=== PATIENT | male | born 1940 | race Caucasian/White ===

== ENCOUNTER → 2017-03-07 | Outpatient (CLI) | payer MEDICARE, BC ==
--- NOTE | 2017-03-07 14:35 | XR ---
EXAMINATION TYPE: XR KUB DATE OF EXAM: 03/07/2017 COMPARISON: NONE HISTORY: Pain TECHNIQUE: Single supine KUB image of the abdomen is obtained FINDINGS: Small bowel demonstrates no evidence for dilatation or air fluid levels. Gas and fecal material is seen in non-distended colon. No convincing evidence for pneumoperitoneum. No unusual calcifications. The lung bases are clear. The osseous structures are intact. IMPRESSION: 1. Overall nonobstructive bowel gas pattern.
== END | disposition home or self-care (01) ==
LOC: RADXRMAIN 14:14
PROVIDERS: ATTEND Internal Medicine
DX: R14.3 Flatulence (principal)
CPT/HCPCS: 74000

== ENCOUNTER → 2017-03-15 | Outpatient (CLI) | payer MEDICARE, BC ==
--- NOTE | 2017-03-15 18:41 | CT ---
EXAMINATION TYPE: CT abdomen pelvis wo con DATE OF EXAM: 03/15/2017 COMPARISON: Abdominal KUB radiograph dated 03/07/2017 HISTORY: Patient complains of episodes of gross hematuria. CT DLP: 1072 mGycm Automated exposure control for dose reduction was used. TECHNIQUE: Helical acquisition of images was performed from the lung bases through the pelvis. FINDINGS: LUNG BASES: No significant abnormality is appreciated. There is partial visualization of sternotomy w ires. LIVER/GB: Hepatic attenuation is homogeneous other than a single calcification within the left hepati c lobe. The gallbladder is enlarged continuing numerous layering gallstones and gallbladder sludge. T he gallbladder measures at least 12.7 cm in length. The common bile duct is not enlarged measuring 6 mm. PANCREAS: No significant abnormality is seen. SPLEEN: No significant abnormality is seen. ADRENALS: No significant abnormality is seen. KIDNEYS: 2 cm left upper pole renal cyst is present as well as a nonobstructing 8 mm left renal calcu beth, 3 mm nonobstructing left renal calculus, and left renal sinus cyst. 1.1 cm exophytic right midpo le renal cyst is present. No right-sided nephrolithiasis. No evidence of hydronephrosis within either kidney. No perinephric fat stranding is seen. FREE AIR: No free air is visualized RETROPERITONEAL ADENOPATHY: None visualized REPRODUCTIVE ORGANS: No significant abnormality is seen URINARY BLADDER: No significant abnormality is seen. PELVIC ADENOPATHY: Multiple nonenlarged lymph nodes are seen within the pelvis measuring up to 8 mm in short axis. Bilateral fat-containing inguinal hernias are noted. OSSEOUS STRUCTURES: Degenerative changes are appreciated of the visualized thoracolumbar spine with anterior bridging osteophytes and degenerative disc disease at L4-5 as well as L5-S1. BOWEL: Large rectal fecal ball measuring up to 9.7 cm is seen without surrounding mucosal thickening . OTHER: Bilateral retroareolar gynecomastia is noted as well as varicosities within the subcutaneous t issues. There is diastases recti without interval ventral hernia. IMPRESSION: 1. NONOBSTRUCTING LEFT RENAL CALCULI (2 IN NUMBER) MEASURING UP TO 8 MM. RENAL CYSTS ARE SEEN. IF SHAHID SS HEMATURIA PERSISTS CT UROGRAM COULD BE PERFORMED FOR FURTHER EVALUATION. 2. ENLARGED GALLBLADDER CONTAINING NUMEROUS CHOLELITHS AND LAYERING GALLBLADDER SLUDGE. COMMON BILE D UCT IS WITHIN NORMAL LIMITS. IF THERE IS CLINICAL CONCERN FOR CHOLECYSTITIS OR BILIARY DYSKINESIA HID A SCAN WITH CCK COULD BE PERFORMED. 3. BILATERAL RETROAREOLAR GYNECOMASTIA. 4. LARGE RECTAL FECAL BALL MEASURING UP TO 9.7 CM WITHOUT SURROUNDING MUCOSAL THICKENING TO SUGGEST P ROCTITIS.
== END | disposition home or self-care (01) ==
LOC: RADCTMAIN 15:01
PROVIDERS: ATTEND Internal Medicine
DX: N20.0 Calculus of kidney (principal); N28.1 Cyst of kidney, acquired; K82.8 Other specified diseases of gallbladder; K80.20 Calculus of gallbladder without cholecystitis without obstruction
CPT/HCPCS: 74176

== ENCOUNTER → 2017-08-01 | Outpatient (CLI) | payer MEDICARE, BC ==
[2017-08-01 10:27] LABS: Calcium 9.6 mg/dL (8.4-10.2); Potassium 4.2 mmol/L (3.5-5.1)
== END | disposition home or self-care (01) ==
LOC: LABWHC1 09:32
PROVIDERS: ATTEND Internal Medicine
DX: E78.5 Hyperlipidemia, unspecified (principal); E11.9 Type 2 diabetes mellitus without complications
CPT/HCPCS: 36415; 80048; 80061; 83036

== ENCOUNTER → 2018-01-21 | Outpatient (CLI) | payer MEDICARE, BC ==
--- NOTE | 2018-01-21 13:20 | US ---
EXAMINATION TYPE: US kidneys/renal and bladder DATE OF EXAM: 01/21/2018 COMPARISON: 03/30/2016 CLINICAL HISTORY: N20.0 Nephrolithiasis. gross hematuria 1 per week, h/o nephrolithiasis EXAM MEASUREMENTS: Right Kidney: 10.6 x 4.1 x 5.4 cm Left Kidney: unable to assess scanned in a wheelchair, large body habitus Right Kidney: No hydronephrosis or nephrolithiasis or masses seen Left Kidney: Obscured by overlying bowel gas Bladder: limited visibility of bladder IMPRESSION: Limited exam as discussed above with suboptimal visualization of the left kidney and bladder. Right k idney demonstrates no acute abnormality.
== END ==
LOC: RADUSWWP 12:42
PROVIDERS: ATTEND Internal Medicine Nephrology
DX: N20.0 Calculus of kidney (principal)
CPT/HCPCS: 76770

== ENCOUNTER → 2018-02-20 | Outpatient (CLI) | payer MEDICARE, BC ==
--- NOTE | 2018-02-20 15:09 | CT ---
EXAMINATION TYPE: CT abdomen pelvis wo con DATE OF EXAM: 02/20/2018 COMPARISON: 03/15/2017 HISTORY: Renal stones. Follow-up examination. Patient describes episodes of gross hematuria. CT DLP: 2280.1 mGycm Automated exposure control for dose reduction was used. TECHNIQUE: Helical acquisition of images was performed from the lung bases through the pelvis. FINDINGS: LUNG BASES: Calcified granulomas are seen within the right lung base. LIVER/GB: Again there is a solitary calcification within the left hepatic lobe otherwise the gallblad mariaa is unremarkable but elongated extending to the iliac crest. Numerous gallstones are seen within t he hydropic gallbladder although no ductal dilatation is identified of the common bile duct. PANCREAS: Mild pancreatic parenchymal atrophy is seen without ductal dilatation. SPLEEN: No splenomegaly ADRENALS: No nodularity. Slight asymmetric left greater than right thickening suggests underlying adr enal gland hyperplasia as the adreniform shape of the adrenal glands is maintained. KIDNEYS: Again there is a probable 2 cm left renal sinus cyst and nonobstructing left upper pole appr oximately 7 mm calculus as well as midpole nonobstructing 3 mm calculus. No right-sided renal calculi are seen. Exophytic right midpole cyst is better appreciated on the prior exam. Urinary bladder wall thickening may relate to incomplete distention and could be correlated with urinalysis to exclude cy stitis. FREE AIR: No free air is visualized ADENOPATHY: No greater than 1 cm short axis lymph node is seen within the abdomen or pelvis. Seen on the prior exam there are multiple nonenlarged pelvic lymph nodes measuring up to 8 mm in short axis. Bilateral fat filled inguinal hernias are again noted. OSSEOUS STRUCTURES: Mild multilevel degenerative changes of the thoracolumbar spine are noted. Moder ate to severe femoral acetabular arthropathy is seen with subchondral sclerosis of the femoral heads without collapse. BOWEL: Numerous colonic diverticula are present without pericolonic fat stranding. No large or small bowel dilatation. OTHER: Superficial subcutaneous varicosities are noted. There is diastases recti and a small fat fill ed periumbilical hernia. Incidental note is made of gynecomastia that is overall symmetric. Moderate calcific atheromatous changes are seen of the abdominal aorta and its branches. Generalized muscular atrophy is seen of the lower extremities and the visualized portions and pelvis. IMPRESSION: 1. Stable nonobstructing left-sided nephrolithiasis. No hydronephrosis bilaterally. Urinary bladder w alls are thickened circumferentially in could relate to incomplete distention or urinary tract infect ion. Correlation with urinalysis is recommended. 2. Hydropic size of the gallbladder containing numerous gallstones.
== END | disposition home or self-care (01) ==
LOC: RADCTMAIN 13:39
PROVIDERS: ATTEND Urology
DX: N20.0 Calculus of kidney (principal); N32.89 Other specified disorders of bladder; K80.20 Calculus of gallbladder without cholecystitis without obstruction; Z88.0 Allergy status to penicillin; Z88.1 Allergy status to other antibiotic agents
CPT/HCPCS: 74176

== ENCOUNTER → 2018-04-23 | Outpatient (CLI) | payer MEDICARE, BC ==
[2018-04-23 12:33] LABS: Calcium 9.2 mg/dL (8.4-10.2); Magnesium 2.2 mg/dL (1.6-2.3); Phosphorus 3.9 mg/dL (2.5-4.5); Potassium 4.8 mmol/L (3.5-5.1); Uric Acid 7.4 mg/dL (3.5-8.5)
[2018-04-23 12:34] LABS: Basophils # (A) 0.1 k/uL (0-0.2); Basophils % (A) 1 %; Eosinophils # (A) 0.3 k/uL (0-0.7); Eosinophils % (A) 4 %; HCT 37.7 % (39.0-53.0); HGB 12.1 gm/dL (13.0-17.5); Lymphocytes # (A) 1.2 k/uL (1.0-4.8); Lymphocytes % (A) 17 %; MCH 29.9 pg (25.0-35.0); MCHC 32.2 g/dL (31.0-37.0); Mean Platelet Volume 7.4; Monocytes # (A) 0.3 k/uL (0-1.0); Monocytes % (A) 5 %; Neutrophils % (A) 71 %; Platelet Count 190 k/uL (150-450); RBC 4.05 m/uL (4.30-5.90); RDW 14.2 % (11.5-15.5); WBC 7.1 k/uL (3.8-10.6)
[2018-04-23 18:31] LABS: Iron Saturation 23.66 (15.00-50.00)
[2018-04-23 19:16] LABS: Parathyroid Hormone Intact 67.6 pg/mL (14.0-72.0)
== END | disposition home or self-care (01) ==
LOC: LABWHC1 11:40
PROVIDERS: ATTEND Internal Medicine Nephrology
DX: N18.3 Chronic kidney disease, stage 3 (moderate) (principal); D63.1 Anemia in chronic kidney disease; E55.9 Vitamin D deficiency, unspecified; E21.3 Hyperparathyroidism, unspecified; M10.9 Gout, unspecified; N39.0 Urinary tract infection, site not specified
CPT/HCPCS: 36415; 80048; 82306; 82728; 83540; 83550; 83735; 83970; 84100; 84550; 85025

== ENCOUNTER → 2019-04-09 | Outpatient (CLI) | payer MEDICARE ==
--- NOTE | 2019-04-09 12:49 | XR ---
EXAMINATION TYPE: XR cervical spine comp DATE OF EXAM: 04/09/2019 TECHNIQUE: Frontal, lateral, oblique, and open mouth view of the cervical spine are obtained. HISTORY: DJD SPONDYLOLISTHESIS COMPARISON: None FINDINGS: The cervical spine is visualized in its entirety from C1 thru the top of T1 level, it is s atisfactory in alignment without evidence of acute fracture or dislocation. The pre-vertebral soft t issue appears within normal limits. The C1-C2 articulation is shows poor visualization top of the de ns, lateral recesses maintained. Vertebral body heights are maintained. There is advanced multilevel anterior spurring. There is moderate multilevel lateral spurring. There is mild multilevel disc space narrowing mid to lower cervical levels. Oblique images show multilevel facet spurring. Overlying rubén rnal wires are present. IMPRESSION: As above. Large anterior bridging osteophytes, correlate for DISH.
--- NOTE | 2019-04-09 12:53 | XR ---
EXAMINATION TYPE: XR lumbar spine 2 or 3V DATE OF EXAM: 04/09/2019 CLINICAL HISTORY: Spondylolisthesis and DJD. TECHNIQUE: Frontal and lateral images of the lumbar spine are obtained. COMPARISON: CT abdomen and pelvis February 20, 2018 FINDINGS: There are 5 lumbar type vertebral bodies redemonstrated. The lumbar spine shows satisfact ory alignment without evidence of acute fracture or dislocation. Mild disc space narrowing L5-S1 leve l otherwise vertebral body heights and disk space heights are within normal limits. Large bridging os teophytes redemonstrated more prominent anteriorly. Facet arthropathy lower lumbar levels. Innumerabl e small gallstones in dilated gallbladder redemonstrated occupying the right lower quadrant. IMPRESSION: Correlate for DISH.
== END | disposition home or self-care (01) ==
LOC: RADXRMAIN 11:40
PROVIDERS: ATTEND Chiropractor
DX: M51.36 Other intervertebral disc degeneration, lumbar region (principal); M99.71 Connective tissue and disc stenosis of intervertebral foramina of cervical region; M25.78 Osteophyte, vertebrae; M43.10 Spondylolisthesis, site unspecified
CPT/HCPCS: 72050; 72100

== ENCOUNTER → 2020-02-16 | Outpatient (CLI) | payer MEDICARE ==
--- NOTE | 2020-02-16 15:57 | US ---
EXAMINATION TYPE: US kidneys/renal and bladder DATE OF EXAM: 02/16/2020 COMPARISON: CT CLINICAL HISTORY: N18.3 Chronic kidney disease, stage 3 (moderate). EXAM MEASUREMENTS: Right Kidney: 10.2 x 5.1 x 4.5cm Left Kidney: 10.5 x 6.0 x 5.1cm Morbidly obese patient unable to walk to bed, done in wheelchair. Technically difficult, limited stud y. Right Kidney: No hydronephrosis or masses seen, very limited visualization Left Kidney: probable cyst measuring 1.4 x 1.4 x 1.1cm, echogenic foci measuring 0.8 x 1.7 x 0.7cm, l imited visualization Bladder: fold vs septation IMPRESSION: 1. Renal cyst or peripelvic cyst mid left kidney. 2. Echogenic left renal stone without evidence of obstruction
== END | disposition home or self-care (01) ==
LOC: RADUSWWP 14:55
PROVIDERS: ATTEND Internal Medicine Nephrology
DX: N20.0 Calculus of kidney (principal)
CPT/HCPCS: 76770

== ENCOUNTER 2020-11-06 14:15 | Inpatient (IN) | payer MEDICARE ==
[2020-11-06] MEDS ORDERED: PANTOPRAZOLE 40 MG/10 ML VIAL IVP STA (14:42)
--- NOTE | 2020-11-06 14:50 | ED ---
General Adult HPI - General Source: patient, family, EMS, RN notes reviewed Mode of arrival: EMS Limitations: no limitations <Shaun Erwin - Last Filed: 11/06/20 14:46> <Moncho Monteiro - Last Filed: 11/06/20 17:16> - General Chief complaint: GI Bleed Stated complaint: GI Bleed Time Seen by Provider: 11/06/20 14:27 - History of Present Illness Initial comments: Patient is a pleasant 80-year-old male presenting to the emergency Department with complaints of GI bleed. Patient did vomit twice with some blood in it. Patient is also had some black tarry stools over the past day or 2. No abdominal pain. Patient does have exertional dyspnea however this is somewhat chronic. Patient also is somewhat more fatigued than normal. Patient is on Eliquis with a history of atrial fibrillation. I did speak with the patient's daughter who is a patient's medical power of compliance attorney. Her phone number is . She states patient does have history of CABG and diabetes as well as amputation. Recent echo in July looked well. (Shaun Erwin) - Related Data Home Medications Medication Instructions Recorded Confirmed Aspirin EC [Ecotrin Low Dose] 81 mg PO DAILY 12/21/13 11/06/20 Carvedilol 12.5 mg PO BID 12/21/13 11/06/20 Cetirizine HCl [Zyrtec] 10 mg PO DAILY 01/14/14 11/06/20 Insulin Glargine,Hum.rec.anlog See Protocol SQ BID 08/31/15 11/06/20 [Sahra Shipley] Apixaban [Eliquis] 5 mg PO BID 04/17/16 11/06/20 Sennosides-Docusate Sodium 1 tab PO DAILY PRN 05/03/16 11/06/20 [Senokot-S] Acetaminophen [Tylenol Arthritis] 650 mg PO Q8H PRN 11/06/20 11/06/20 Allopurinol [Zyloprim] 100 mg PO DAILY 11/06/20 11/06/20 Atorvastatin [Lipitor] 40 mg PO HS 11/06/20 11/06/20 Benazepril [Lotensin] 2.5 mg PO DAILY 11/06/20 11/06/20 Bumetanide 1 mg PO DAILY 11/06/20 11/06/20 Citalopram Hydrobromide [CeleXA] 20 mg PO DAILY 11/06/20 11/06/20 Diltiazem HCl [Diltiazem HCl 24Hr 180 mg PO DAILY 11/06/20 11/06/20 ER (XR)] Docusate [Colace] 100 mg PO DAILY PRN 11/06/20 11/06/20 Insulin Lispro [humaLOG Kwikpen] See Protocol SQ TID 11/06/20 11/06/20 Liraglutide [Victoza 3-Wilfredo] 1.2 mg SQ DAILY 11/06/20 11/06/20 Spironolactone 25 mg PO DAILY 11/06/20 11/06/20 Tamsulosin [Flomax] 0.4 mg PO DAILY 11/06/20 11/06/20 Allergies Allergy/AdvReac Type Severity Reaction Status Date / Time amoxicillin trihydrate AdvReac Mouth Sores Verified 11/06/20 16:09 [From Augmentin] potassium clavulanate AdvReac Mouth Sores Verified 11/06/20 16:09 [From Augmentin] Review of Systems ROS Other: All systems not noted in ROS Statement are negative. Constitutional: Denies: fever Eyes: Denies: eye pain ENT: Denies: ear pain Respiratory: Denies: cough, dyspnea Cardiovascular: Denies: chest pain Endocrine: Reports: fatigue Gastrointestinal: Reports: hematemesis, melena. Denies: abdominal pain Genitourinary: Denies: dysuria Musculoskeletal: Denies: back pain Skin: Denies: rash Neurological: Denies: weakness <Shaun Erwin - Last Filed: 11/06/20 14:46> ROS Other: All systems not noted in ROS Statement are negative. <Moncho Monteiro - Last Filed: 11/06/20 17:16> ROS Statement: Those systems with pertinent positive or pertinent negative responses have been documented in the HPI. Past Medical History Past Medical History: Atrial Fibrillation, Cancer, Diabetes Mellitus, Deep Vein Thrombosis (DVT), Eye Disorder, Hearing Disorder / Deafness, Myocardial Infarction (CA), Osteoarthritis (OA), Osteoarthritis (OA), Renal Disease, Skin Disorder, Skin Disorder Additional Past Medical History / Comment(s): HX MULT MELANOMA,kidney stones, RETINOPATHY, EDEMA LINDA EXTREMITIES. LT FOOT/ANKLE WOUND ON BACK OF HEEL/ANKLE. GOES TO WOUND [facility]ARE CENTER (WEEKLY). RIGHT FOOT TUBAGRIP AND SOLOMON WRAP TO PREVENT SWELLING. CA IN 2003 WITH STENTS & 2011 MILD. Last Myocardial Infarction Date:: 2010 History of Any Multi-Drug Resistant Organisms: MRSA Date of last positivie culture/infection: approx 2010 MDRO Source:: leg Past Surgical History: Cardiac Valve Replacement, Ear Surgery, Heart Catheterization With Stent Additional Past Surgical History / Comment(s): cataracts LINDA EYES; TOES TO BOTH FEET AMPUTATED VIA MULTIPLE SURG WITH MANY COMPLICATIONS D/T WOUND INFECTIONS;,MULTIPLE ANGIOPLASTIES TO RT & LT LEGS/PARTIAL linda FOOT AMPUTATION- AORTIC VALVE REPLACEMENT, linda tubes in ears, linda eye surgery for retina. HEART STENT X2 Past Anesthesia/Blood Transfusion Reactions: No Reported Reaction Additional Past Anesthesia/Blood Transfusion Reaction / Comment(s): STATES "FELT LIKE RUN OVER BY TRAIN" AFTER TUBES IN EARS Date of Last Stent Placement:: 2003 Past Psychological History: Anxiety Smoking Status: Never smoker Past Alcohol Use History: None Reported Past Drug Use History: None Reported - Past Family History Mother Family Medical History: Cancer Father Family Medical History: Diabetes Mellitus <Shaun Erwin - Last Filed: 11/06/20 14:46> General Exam Limitations: no limitations General appearance: alert, in no apparent distress Head exam: Present: normocephalic Eye exam: Present: normal appearance Neck exam: Present: normal inspection Respiratory exam: Present: normal lung sounds bilaterally Cardiovascular Exam: Present: tachycardia, irregular rhythm GI/Abdominal exam: Present: soft. Absent: tenderness Extremities exam: Present: other (Left AKA. Right toe amputations.) Neurological exam: Present: alert Psychiatric exam: Present: normal affect, normal mood Skin exam: Present: normal color <Shaun Erwin - Last Filed: 11/06/20 14:46> Course <Shaun Erwin - Last Filed: 11/06/20 14:46> Vital Signs 11/06/20 11/06/20 11/06/20 14:35 15:42 16:09 Temperature 98 F Pulse Rate 129 H 117 H 104 H Respiratory 18 18 16 Rate Blood Pressure 109/57 109/52 114/64 O2 Sat by Pulse 99 99 96 Oximetry 11/06/20 11/06/20 16:55 17:09 Temperature Pulse Rate 105 H 104 H Respiratory 18 Rate Blood Pressure 113/50 O2 Sat by Pulse 99 Oximetry - Reevaluation(s) Reevaluation #1: 11/06/20 14:49 With patient's permission, daughter was called and updated. (Shaun Erwin) EKG Findings - EKG Comments: EKG Findings:: A. fib with RVR, rate 119. QRS 128. QT 344. QTC 43. Normal axis. Nonspecific intraventricular block. Q wave in lead V1. <Shaun Erwin - Last Filed: 11/06/20 14:46> Medical Decision Making - Lab Data Result diagrams: 11/06/20 15:04 11/06/20 16:37 <Moncho Monteiro - Last Filed: 11/06/20 17:16> - Medical Decision Making Patient was sent out to me by previous shift physician Dr. Erwin. Briefly, patient is a 80-year-old male presents to the emergency department for gastrointestinal bleed. Patient does take anticoagulation medications. He has multiple comorbidities. Vital signs upon arrival shows tachycardia.Patient's potassium is 6.8. Repeat potassium 6.5. Patient does have EKG changes. There is no old EKG for comparison. [place] him that patient's EKG shows hyperacute T waves consistent with hyperkalemia. Patient's Hemoccult was 8.1. Compared to last lab that's available in our EMR it was 13. There is a 5 g drop concerning for acute blood loss. Creatinine is 2.98 with BUN of 149 concerning for acute kidney injury. So, but is positive. Case is discussed with Dr. Ferguson was went accept patient's care on behalf of [facility] physician group. Case was discussed with instructional designer Dr. Sharif who did not feel patient met criteria for ICU admission. Patient will be admitted to telemetry floor for medical monitoring, hyperkalemia treatment, a GI treatment. Gastroenterology and nephrology are consulted. Patient is on anticoagulation medication. On his drug lists he takes apixaban. He has stable vitals. At this point no clear indication for administration of K centra. (Moncho Monteiro) - Lab Data Lab Results 11/06/20 11/06/20 11/06/20 Range/Units 14:57 15:04 15:04 WBC 9.3 (3.8-10.6) k/uL RBC 2.46 L (4.30-5.90) m/uL Hgb 8.1 L (13.0-17.5) gm/dL Hct 23.3 L (39.0-53.0) % MCV 94.5 (80.0-100.0) fL MCH 32.8 (25.0-35.0) pg MCHC 34.7 (31.0-37.0) g/dL RDW 14.0 (11.5-15.5) % Plt Count 178 (150-450) k/uL MPV 8.0 Neutrophils % 85 % Lymphocytes % 10 % Monocytes % 2 % Eosinophils % 1 % Basophils % 0 % Neutrophils # 8.0 H (1.3-7.7) k/uL Lymphocytes # 1.0 (1.0-4.8) k/uL Monocytes # 0.2 (0-1.0) k/uL Eosinophils # 0.1 (0-0.7) k/uL Basophils # 0.0 (0-0.2) k/uL PT 12.1 H (9.0-12.0) sec INR 1.2 H (<1.2) APTT 25.8 (22.0-30.0) sec Sodium (137-145) mmol/L Potassium (3.5-5.1) mmol/L Chloride (98-107) mmol/L Carbon Dioxide (22-30) mmol/L Anion Gap mmol/L BUN (9-20) mg/dL Creatinine (0.66-1.25) mg/dL Est GFR (CKD-EPI)AfAm (>60 ml/min/1.73 sqM) Est GFR (CKD-EPI)NonAf (>60 ml/min/1.73 sqM) Glucose (74-99) mg/dL Calcium (8.4-10.2) mg/dL Total Bilirubin (0.2-1.3) mg/dL AST (17-59) U/L ALT (4-49) U/L Alkaline Phosphatase (38-126) U/L Troponin I (0.000-0.034) ng/mL Total Protein (6.3-8.2) g/dL Albumin (3.5-5.0) g/dL Stool Occult Blood (Negative) Blood Type A Positive Blood Type Confirm Blood Type Recheck No Previous Record Bld Type Recheck Status CABO Indicated Antibody Screen NEGATIVE Crossmatch See Detail Spec Expiration Date 11/09/2020 - 235611/06/20 11/06/20 11/06/20 Range/Units 15:04 15:05 15:29 WBC (3.8-10.6) k/uL RBC (4.30-5.90) m/uL Hgb (13.0-17.5) gm/dL Hct (39.0-53.0) % MCV (80.0-100.0) fL MCH (25.0-35.0) pg MCHC (31.0-37.0) g/dL RDW (11.5-15.5) % Plt Count (150-450) k/uL MPV Neutrophils % % Lymphocytes % % Monocytes % % Eosinophils % % Basophils % % Neutrophils # (1.3-7.7) k/uL Lymphocytes # (1.0-4.8) k/uL Monocytes # (0-1.0) k/uL Eosinophils # (0-0.7) k/uL Basophils # (0-0.2) k/uL PT (9.0-12.0) sec INR (<1.2) APTT (22.0-30.0) sec Sodium 133 L (137-145) mmol/L Potassium 6.8 H* (3.5-5.1) mmol/L Chloride 109 H (98-107) mmol/L Carbon Dioxide 14 L (22-30) mmol/L Anion Gap 10 mmol/L BUN 149 H* (9-20) mg/dL Creatinine 2.98 H (0.66-1.25) mg/dL Est GFR (CKD-EPI)AfAm 22 (>60 ml/min/1.73 sqM) Est GFR (CKD-EPI)NonAf 19 (>60 ml/min/1.73 sqM) Glucose 186 H (74-99) mg/dL Calcium 8.8 (8.4-10.2) mg/dL Total Bilirubin 0.4 (0.2-1.3) mg/dL AST 19 (17-59) U/L ALT 12 (4-49) U/L Alkaline Phosphatase 46 (38-126) U/L Troponin I 0.015 (0.000-0.034) ng/mL Total Protein 6.1 L (6.3-8.2) g/dL Albumin 3.3 L (3.5-5.0) g/dL Stool Occult Blood (Negative) Blood Type Blood Type Confirm A Positive Blood Type Recheck Bld Type Recheck Status Antibody Screen Crossmatch Spec Expiration Date 11/06/20 11/06/20 Range/Units 16:37 16:53 WBC (3.8-10.6) k/uL RBC (4.30-5.90) m/uL Hgb (13.0-17.5) gm/dL Hct (39.0-53.0) % MCV (80.0-100.0) fL MCH (25.0-35.0) pg MCHC (31.0-37.0) g/dL RDW (11.5-15.5) % Plt Count (150-450) k/uL MPV Neutrophils % % Lymphocytes % % Monocytes % % Eosinophils % % Basophils % % Neutrophils # (1.3-7.7) k/uL Lymphocytes # (1.0-4.8) k/uL Monocytes # (0-1.0) k/uL Eosinophils # (0-0.7) k/uL Basophils # (0-0.2) k/uL PT (9.0-12.0) sec INR (<1.2) APTT (22.0-30.0) sec Sodium (137-145) mmol/L Potassium 6.5 H* (3.5-5.1) mmol/L Chloride (98-107) mmol/L Carbon Dioxide (22-30) mmol/L Anion Gap mmol/L BUN (9-20) mg/dL Creatinine (0.66-1.25) mg/dL Est GFR (CKD-EPI)AfAm (>60 ml/min/1.73 sqM) Est GFR (CKD-EPI)NonAf (>60 ml/min/1.73 sqM) Glucose (74-99) mg/dL Calcium (8.4-10.2) mg/dL Total Bilirubin (0.2-1.3) mg/dL AST (17-59) U/L ALT (4-49) U/L Alkaline Phosphatase (38-126) U/L Troponin I (0.000-0.034) ng/mL Total Protein (6.3-8.2) g/dL Albumin (3.5-5.0) g/dL Stool Occult Blood Positive (Negative) Blood Type Blood Type Confirm Blood Type Recheck Bld Type Recheck Status Antibody Screen Crossmatch Spec Expiration Date Disposition <Shaun Erwin - Last Filed: 11/06/20 14:46> Decision Time: 17:15 <Moncho Monteiro - Last Filed: 11/06/20 17:16> Clinical Impression: Hyperkalemia, GI bleed, ZANDRA (acute kidney injury) Disposition: ADMITTED IP TO THIS [facility] Condition: Critical Referrals: Anjali Booker MD [Primary Care Provider] - 1-2 days
[2020-11-06 15:25] LABS: Basophils % (A) 0 %; Eosinophils # (A) 0.1 k/uL (0-0.7); Eosinophils % (A) 1 %; HCT 23.3 % (39.0-53.0); HGB 8.1 gm/dL (13.0-17.5); Lymphocytes % (A) 10 %; MCH 32.8 pg (25.0-35.0); MCHC 34.7 g/dL (31.0-37.0); MCV 94.5 fL (80.0-100.0); Monocytes # (A) 0.2 k/uL (0-1.0); Monocytes % (A) 2 %; Neutrophils % (A) 85 %; Platelet Count 178 k/uL (150-450); RBC 2.46 m/uL (4.30-5.90); WBC 9.3 k/uL (3.8-10.6)
--- NOTE | 2020-11-06 15:36 | XR ---
EXAMINATION TYPE: XR chest 1V portable DATE OF EXAM: 11/06/2020 COMPARISON: 10/27/2011. HISTORY: Shortness of breath. TECHNIQUE: Single frontal view of the chest is obtained. FINDINGS: There is no focal air space opacity, pleural effusion, or pneumothorax seen. The cardiac silhouette size is within normal limits. Median sternotomy seen. The osseous structures are intact. IMPRESSION: No acute process.
[2020-11-06 15:37] LABS: Albumin 3.3 g/dL (3.5-5.0); Calcium 8.8 mg/dL (8.4-10.2); Total Bilirubin 0.4 mg/dL (0.2-1.3); Total Protein 6.1 g/dL (6.3-8.2)
[2020-11-06 15:39] LABS: INR 1.2 (<1.2); Partial Thromboplastin Time 25.8 sec (22.0-30.0); Prothrombin Time 12.1 sec (9.0-12.0)
[2020-11-06 15:51] LABS: Potassium 6.8 mmol/L (3.5-5.1)
[2020-11-06] MEDS ORDERED: INSULIN REGULAR 100 UNIT/ML VIAL IV ONE (15:59)
[2020-11-06] MEDS ORDERED: ALBUTEROL NEB (CONC) 2.5 MG/0.5 ML INHALATION ONE (15:59)
[2020-11-06] MEDS ORDERED: CALCIUM GLUCONATE 1 GM in SODIUM CHLORIDE 0.9% 100 ML IVPB ONE (15:59)
[2020-11-06] MEDS ORDERED: DEXTROSE 50% SYRINGE 50 ML IVP ONE (15:59)
[2020-11-06] MEDS ORDERED: SODIUM CHLORIDE 0.9% 500 ML 500 ML IV STA (16:05)
[2020-11-06] MEDS ORDERED: SODIUM BICARB 8.4% 50 ML SYR (1 MEQ/ML) IV STA (17:05)
[2020-11-06] MEDS ORDERED: NALOXONE 0.4 MG/ML 1 ML VIAL IV PRN ×2 (17:12→17:53)
[2020-11-06] MEDS ORDERED: ONDANSETRON 4 MG/2 ML VIAL IVP PRN (17:12)
[2020-11-06] MEDS: DEXTROSE 5% IN WATER 1,000 ML with SODIUM BICARB (1 MEQ/ML) 150 ML IV SCH (18:15)
--- NOTE | 2020-11-06 18:26 | P.HPIM ---
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 It occurred twice. Patient is also had some black tarry stools over the past day or 2. No abdominal pain. Patient does have worsening of his chronic exertional dyspnea and cough. Has chills but no fevers. Has been feeling very weak and fatigued. No energy to ambulate. In the ER exam showed tachycardia with HR in the 110s. Patient's potassium was 6.8. Patient does have peaked T wave in the septal leads but there is no old EKG for comparison. Patient's Hemoglobin was 8.1. Last Hgb from last year was 13. Creatinine is 2.98 with BUN of 149, baseline cr 1.7. Hemoccult was + in the ER. Case was discussed with pen tester Dr. Sharif who did not feel patient met criteria for ICU admission. Patient will be admitted to telemetry floor. Review of Systems complete review of system performed, pertinent positives per HPI otherwise negat jamila Past Medical History Past Medical History: Atrial Fibrillation, Cancer, Diabetes Mellitus, Deep Vein Thrombosis (DVT), Eye Disorder, Hearing Disorder / Deafness, Myocardial Infarction ([place]), Osteoarthritis (OA), Osteoarthritis (OA), Renal Disease, Skin Disorder, Skin Disorder Additional Past Medical History / Comment(s): HX MULT MELANOMA,kidney stones, RETINOPATHY, EDEMA LINDA EXTREMITIES. LT FOOT/ANKLE WOUND ON BACK OF HEEL/ANKLE. GOES TO [facility] (WEEKLY). RIGHT FOOT TUBAGRIP AND SOLOMON WRAP TO PREVENT SWELLING. FL IN 2003 WITH STENTS & 2010 MILD. Last Myocardial Infarction Date:: 2010 History of Any Multi-Drug Resistant Organisms: MRSA Date of last positivie culture/infection: approx 2010 MDRO Source:: leg Past Surgical History: Cardiac Valve Replacement, Ear Surgery, Heart Catheterization With Stent Additional Past Surgical History / Comment(s): cataracts LINDA EYES; TOES TO BOTH FEET AMPUTATED VIA MULTIPLE SURG WITH MANY COMPLICATIONS D/T WOUND INFECTIONS;,M ULTIPLE ANGIOPLASTIES TO RT & LT LEGS/PARTIAL linda FOOT AMPUTATION-AORTIC VALVE REPLACEMENT, linda tubes in ears, linda eye surgery for retina. HEART STENT X2 Past Anesthesia/Blood Transfusion Reactions: No Reported Reaction Additional Past Anesthesia/Blood Transfusion Reaction / Comment(s): STATES "FELT LIKE RUN OVER BY TRAIN" AFTER TUBES IN EARS Date of Last Stent Placement:: 2003 Past Psychological History: Anxiety Smoking Status: Never smoker Past Alcohol Use History: None Reported Past Drug Use History: None Reported - Past Family History Mother Family Medical History: Cancer Father Family Medical History: Diabetes Mellitus Medications and Allergies Home Medications Medication Instructions Recorded Confirmed Type Aspirin EC [Ecotrin Low Dose] 81 mg PO DAILY 12/21/13 11/06/20 History Carvedilol 12.5 mg PO BID 12/21/13 11/06/20 History Cetirizine HCl [Zyrtec] 10 mg PO DAILY 01/14/14 11/06/20 History Insulin Glargine,Hum.rec.anlog See Protocol SQ BID 08/31/15 11/06/20 History [Toujeo Solostar] Apixaban [Eliquis] 5 mg PO BID 04/17/16 11/06/20 History Sennosides-Docusate Sodium 1 tab PO DAILY PRN 05/03/16 11/06/20 History [Senokot-S] Acetaminophen [Tylenol Arthritis] 650 mg PO Q8H PRN 11/06/20 11/06/20 History Allopurinol [Zyloprim] 100 mg PO DAILY 11/06/20 11/06/20 History Atorvastatin [Lipitor] 40 mg PO HS 11/06/20 11/06/20 History Benazepril [Lotensin] 2.5 mg PO DAILY 11/06/20 11/06/20 History Bumetanide 1 mg PO DAILY 11/06/20 11/06/20 History Citalopram Hydrobromide [CeleXA] 20 mg PO DAILY 11/06/20 11/06/20 History Diltiazem HCl [Diltiazem HCl 24Hr 180 mg PO DAILY 11/06/20 11/06/20 History ER (XR)] Docusate [Colace] 100 mg PO DAILY PRN 11/06/20 11/06/20 History Insulin Lispro [humaLOG Kwikpen] See Protocol SQ TID 11/06/20 11/06/20 History Liraglutide [Victoza 3-Wilfredo] 1.2 mg SQ DAILY 11/06/20 11/06/20 History Spironolactone 25 mg PO DAILY 11/06/20 11/06/20 History Tamsulosin [Flomax] 0.4 mg PO DAILY 11/06/20 11/06/20 History Allergies Allergy/AdvReac Type Severity Reaction Status Date / Time amoxicillin trihydrate AdvReac Mouth Sores Verified 11/06/20 16:09 [From Augmentin] potassium clavulanate AdvReac Mouth Sores Verified 11/06/20 16:09 [From Augmentin] Physical Exam Vitals: Vital Signs Temp Pulse Resp BP Pulse Ox 11/06/20 17:40 106 H 11/06/20 17:20 102 H 11/06/20 17:09 104 H 11/06/20 16:55 105 H 18 113/50 99 11/06/20 16:09 104 H 16 114/64 96 11/06/20 15:42 117 H 18 109/52 99 11/06/20 14:35 98 F 129 H 18 109/57 99 Intake and Output 11/06/20 11/06/20 11/06/20 06:59 14:59 22:59 Intake Total 0 Balance 0 Intake: Blood Product 0 Rc As-1 Unit 0 [id number] Other: Weight 257.6 kg Constitutional: No acute distress, conversant, pleasant Eyes:Anicteric sclerae, moist conjunctiva, no lid-lag, PERRLA, ENMT: Oropharynx clear, no erythema, exudates Neck: Supple, FROM, no masses, or JVD, No carotid bruits, No thyromegaly Lungs: Clear to auscultation, Clear to percussion, Normal respiratory effort, no accessory muscle use Cardiovascular: Heart regular in rate and rhythm, No murmurs, gallops, or rubs, No peripheral edema Abdominal: Soft, Nontender, no guarding, rebound or rigidity, Normoactive bowel sounds, No hepatomegaly, No splenomegaly, No palpable mass Skin: Normal temperature, tone, texture, turgor, no induration, No subcutaneous nodules, No rash, lesions, No ulcers Extremities: No digital cyanosis, No clubbing, Pedal pulses intact and symm etrical, Radial pulses intact and symmetrical, No calf tenderness Psychiatric: Alert and oriented to person, place and time, appropriate affect, intact judgement Neuro: Muscles Strength 5/5 in all 4 extremities, Sensation to light touch grossly present throughout, Cranial nerves II-XII grossly intact, no focal sensory deficits Results CBC & Chem 7: 11/06/20 15:04 11/06/20 16:37 Labs: Abnormal Lab Results - Last 24 Hours (Table) 11/06/20 11/06/20 11/06/20 Range/Units 14:57 15:04 15:04 RBC 2.46 L (4.30-5.90) m/uL Hgb 8.1 L (13.0-17.5) gm/dL Hct 23.3 L (39.0-53.0) % Neutrophils # 8.0 H (1.3-7.7) k/uL PT 12.1 H (9.0-12.0) sec INR 1.2 H (<1.2) Sodium (137-145) mmol/L Potassium (3.5-5.1) mmol/L Chloride (98-107) mmol/L Carbon Dioxide (22-30) mmol/L BUN (9-20) mg/dL Creatinine (0.66-1.25) mg/dL Glucose (74-99) mg/dL Total Protein (6.3-8.2) g/dL Albumin (3.5-5.0) g/dL Crossmatch See Detail 11/06/20 11/06/20 Range/Units 15:04 16:37 RBC (4.30-5.90) m/uL Hgb (13.0-17.5) gm/dL Hct (39.0-53.0) % Neutrophils # (1.3-7.7) k/uL PT (9.0-12.0) sec INR (<1.2) Sodium 133 L (137-145) mmol/L Potassium 6.8 H* 6.5 H* (3.5-5.1) mmol/L Chloride 109 H (98-107) mmol/L Carbon Dioxide 14 L (22-30) mmol/L BUN 149 H* (9-20) mg/dL Creatinine 2.98 H (0.66-1.25) mg/dL Glucose 186 H (74-99) mg/dL Total Protein 6.1 L (6.3-8.2) g/dL Albumin 3.3 L (3.5-5.0) g/dL Crossmatch Assessment and Plan Plan: GI bleeding NPO Consult GI Recheck hgb in 2 hours to assess for need for transfusion PPI IV BID Hold AC ZANDRA on CKD stage 3 Likely sec to above IV fluids Avoid nephrotoxic meds Recheck cr in am Atrial Fibrillation with RVR Hold oral meds for now Metoprolol 2.5 mg IV q 6hrs PRN for HR more than 110 Diabetes Mellitus type 2 Hold oral hypoglycemics and patients home insulin Start SSI for now as he will be NPO CAD HTN Stable, hold meds for now. Admitted to inpatient, expected length of stay more than 2 midnights.
[2020-11-06] MEDS ORDERED: FUROSEMIDE 10 MG/ML 4 ML VIAL IV STA (20:47)
[2020-11-06 21:00] LABS: Glucose,Whole Blood 232 mg/dL (75-99)
[2020-11-06 21:32] LABS: Basophils % (A) 0 %; Eosinophils # (A) 0.1 k/uL (0-0.7); Eosinophils % (A) 1 %; HCT 23.8 % (39.0-53.0); HGB 8.5 gm/dL (13.0-17.5); Lymphocytes % (A) 11 %; MCH 34.2 pg (25.0-35.0); MCHC 35.9 g/dL (31.0-37.0); MCV 95.3 fL (80.0-100.0); Monocytes # (A) 0.4 k/uL (0-1.0); Monocytes % (A) 4 %; Neutrophils # (A) 7.3 k/uL (1.3-7.7); Neutrophils % (A) 83 %; Platelet Count 157 k/uL (150-450); RDW 13.8 % (11.5-15.5); WBC 8.8 k/uL (3.8-10.6)
[2020-11-06] MEDS: PANTOPRAZOLE 40 MG/10 ML VIAL IVP SCH (21:38)
[2020-11-06] MEDS: INSULIN ASPART (NovoLOG) 100 UNIT/ML VIAL SQ SCH (21:39)
[2020-11-06] MEDS: ACETAMINOPHEN TAB 325 MG TAB PO PRN (21:39)
[2020-11-06 21:42] LABS: Calcium 8.8 mg/dL (8.4-10.2); Potassium 5.6 mmol/L (3.5-5.1)
[2020-11-07] MEDS: DEXTROSE 5% IN WATER 1,000 ML with SODIUM BICARB (1 MEQ/ML) 150 ML IV SCH (03:20)
[2020-11-07] MEDS: ACETAMINOPHEN TAB 325 MG TAB PO PRN ×3 (03:20→23:20)
[2020-11-07 06:22] LABS: Glucose,Whole Blood 223 mg/dL (75-99)
[2020-11-07] MEDS: INSULIN ASPART (NovoLOG) 100 UNIT/ML VIAL SQ SCH ×4 (06:47→20:40)
[2020-11-07 08:13] LABS: Albumin 2.8 g/dL (3.5-5.0); Basophils # (A) 0.1 k/uL (0-0.2); Basophils % (A) 1 %; Calcium 8.6 mg/dL (8.4-10.2); Eosinophils # (A) 0.1 k/uL (0-0.7); Eosinophils % (A) 2 %; HCT 22.2 % (39.0-53.0); HGB 7.6 gm/dL (13.0-17.5); Lymphocytes # (A) 1.1 k/uL (1.0-4.8); Lymphocytes % (A) 14 %; MCH 31.7 pg (25.0-35.0); MCHC 34.2 g/dL (31.0-37.0); MCV 92.7 fL (80.0-100.0); Magnesium 1.9 mg/dL (1.6-2.3); Mean Platelet Volume 7.7; Monocytes # (A) 0.4 k/uL (0-1.0); Monocytes % (A) 5 %; Neutrophils # (A) 5.8 k/uL (1.3-7.7); Neutrophils % (A) 77 %; Phosphorus 3.9 mg/dL (2.5-4.5); Platelet Count 170 k/uL (150-450); Potassium 4.8 mmol/L (3.5-5.1); RDW 14.4 % (11.5-15.5); Total Bilirubin 0.6 mg/dL (0.2-1.3); Total Protein 5.4 g/dL (6.3-8.2); WBC 7.6 k/uL (3.8-10.6)
[2020-11-07] MEDS: PANTOPRAZOLE 40 MG/10 ML VIAL IVP SCH ×2 (10:17→20:40)
[2020-11-07] MEDS: LACTATED RINGERS 1,000 ML IV SCH ×2 (10:17→20:27)
[2020-11-07 11:50] LABS: Glucose,Whole Blood 137 mg/dL (75-99)
--- NOTE | 2020-11-07 14:03 | CONS ---
CONSULTATION REASON FOR CONSULT: Renal failure. HISTORY OF PRESENT ILLNESS: Patient is a 80-year-old male who was admitted to the hospital with complaints of increased weakness. The patient also complained of vomiting blood colored fluid. He has had black stools for the past 2 days prior to admission. Patient has history of chronic kidney disease NKF stage 3B, with baseline creatinine about 1.5-1.8 mg/dL secondary to nephrosclerosis. On admission, patient was noted to have a serum creatinine of 2.9 and potassium of 6.8 mEq/L. He has received IV treatment for the hyperkalemia. The patient was also acidotic with CO2 of 14 and this is now improved. Hemoglobin was 8.1 g/dL on admission. Blood pressure was around 116 to 114 mmHg with occasional drop in to 109 mmHg for systolic blood pressure. The patient was maintained on low-dose SOLOMON inhibitors prior to admission along with loop diuretics. Currently he is incontinent but has had good urine output. PAST MEDICAL HISTORY: Chronic kidney disease, stage 3B, hypertension, type 2 diabetes, peripheral vascular disease, coronary artery disease, status post coronary artery bypass surgery, history of chronic atrial fibrillation, history of DVT, NM, osteoarthritis, history of kidney stones, history of multiple myeloma details not clear. PAST SURGICAL HISTORY: Cataract surgery, surgery on toes, left , aortic valve replacement, coronary stent. SOCIAL HISTORY: Negative for smoking, drug abuse or alcohol abuse. MEDICATIONS: Medications prior to admission included aspirin, Coreg, Zyrtec, Eliquis, Senokot, Zyloprim, Lipitor, Lotensin, Bumex, Celexa, diltiazem, Colace, insulin, Victoza, spironolactone, Flomax. ALLERGIES: Allergies include AUGMENTIN which causes oral ulcers. REVIEW OF SYSTEMS: As per HPI. Other systems negative. Patient is a poor historian. PHYSICAL EXAMINATION: Patient is comfortable, not in any acute distress. Blood pressure 116/55, heart rate 54 per minute. He is afebrile. EXAMINATION OF THE HEART: S1, S2. EXAMINATION OF LUNGS: Decreased breath sounds at bases. Abdomen is soft, nontender. Examination of lower extremities shows no significant edema. MAMMOGRAPHY TECHNICIAN exam grossly intact. Patient moving all 4 extremities. LABS: Labs show sodium 136, potassium 4.8, BUN 122, serum creatinine 2.19. UA is not available. Stool for occult blood was positive. Chest x-ray does not show any pulmonary vascular congestion. ASSESSMENT: 1. Acute kidney injury associated with hypovolemia and some degree of hypoperfusion, currently improving. Patient is nonoliguric. We will check a bladder scan. Rule out urine retention and if there is no evidence of retention, we do not need to place a Sequeira catheter. 2. Disproportionately elevated BUN secondary to underlying GI bleed and some degree of volume depletion. 3. Chronic kidney disease, NKF stage 3B, with previous creatinine 1.5-1.8 mg/dL as of January of 2000. 4. Gastrointestinal bleed. Hemoglobin at 7.6 today. GI is on consult, maintained on proton pump inhibitors. 5. Metabolic acidosis associated with renal failure. GI fluid loss and diarrhea, status post IV bicarb. PLAN: Switch IV fluids to Ringer lactate. Maintain IV hydration. Check urinalysis. Repeat labs in a.m. Check bladder scan. Rule out urine retention. Thank you for this consultation. Will continue to follow the patient with you during his hospitalization. MMODL / IJN: [id number] /
[2020-11-07 15:08] LABS: Appearance,Urine Clear (Clear); Bacteria,Urine Rare /hpf; Bilirubin,Urine Negative (Negative); Blood,Urine Moderate (Negative); Color,Urine Light Yellow; Glucose,Urine (UA) Negative (Negative); Ketones,Urine Negative (Negative); Leukocyte Esterase,Urine Small (Negative); Nitrite,Urine Negative (Negative); Protein,Urine Negative (Negative); RBC,Urine 11 /hpf (0-5); Specific Gravity,Urine 1.013 (1.001-1.035); Squamous Epithelial Cell,Urine <1 /hpf (0-4); Urobilinogen,Urine <2.0 mg/dL (<2.0); WBC,Urine 6 /hpf (0-5)
--- NOTE | 2020-11-07 15:33 | CONS ---
CONSULTATION DATE OF DICTATION: 11/07/2020 REASON FOR CONSULTATION: Acute upper GI bleed. HISTORY OF PRESENT ILLNESS: The patient is a 80-year-old pleasant white male admitted to the hospital with black tarry stools and coffee-ground emesis for the last 2 days' duration. Apparently the patient had a couple of episodes of coffee-ground emesis followed by black tarry stools for the last 2 days. He has a history of coronary artery disease and atrial fibrillation, on Eliquis, which has been on hold since yesterday. His initial hemoglobin was 8.5 g/dL, and this morning repeat hemoglobin is 7.6 g/dL. He received one unit of PRBC transfusion yesterday. He is currently receiving a second unit. The patient denies any abdominal pain, reports no further episodes of nausea, vomiting. No prior history of peptic ulcer disease. PAST MEDICAL HISTORY: Significant for hypertension, hyperlipidemia, diabetes mellitus, history of atrial fibrillation, on Eliquis, coronary artery disease, degenerative joint disease, history of DVT in the past. PAST SURGICAL HISTORY: Cardiac catheterization with stent placement, valve replacement, bilateral cataract surgeries. MEDICATIONS: Medications at home include aspirin, carvedilol, Zyrtec, Toujeo insulin, Eliquis, Senna, Tylenol Arthritis, Lotensin, Lipitor, Zyloprim, bumetanide, diltiazem, Celexa, Colace, Humalog, Victoza, spironolactone and Flomax. ALLERGIES: AUGMENTIN. SOCIAL HISTORY: No smoking. No alcohol use. FAMILY HISTORY: Mother had some kind of cancer and father has diabetes mellitus. REVIEW OF SYSTEMS: CARDIOPULMONARY: No chest pain or shortness of breath. GENITOURINARY: No dysuria or hematuria. MUSCULOSKELETAL: Unremarkable. SKIN: Unremarkable. ENDOCRINE: Unremarkable. PSYCHIATRIC: Unremarkable. NEUROLOGY: Unremarkable. ENT/VISION: Unremarkable. CONSTITUTIONAL: He denies any weight loss. No fever, chills, night sweats. PHYSICAL EXAMINATION: Blood pressure is 127/71, pulse rate 107, temperature 98.2. HEENT examination unremarkable. Conjunctivae pink. Sclerae anicteric. Oral cavity no lesions. NECK: No JVD or lymph node enlargement. CHEST: Clear to auscultation. HEART: Regular rate and rhythm. ABDOMEN: Soft. Bowel sounds are positive. No organomegaly. EXTREMITIES: No pedal edema. NEUROLOGIC: Alert and oriented x3. No focal deficits. LABS: Labs done at the time of admission to the hospital: WBC 8.8, hemoglobin 8.7, status post one unit of PRBC transfusion. Repeat hemoglobin is 7.6; receiving second unit of PRBC transfusion. BUN is 141, creatinine 2.42. Sodium 134, potassium 5.6, chloride 111, CO2 14. AST, ALT, T-bilirubin and alkaline phosphatase are normal. Stool occult blood was positive. IMPRESSION: 1. Acute upper gastrointestinal bleed. Patient presented with coffee-ground emesis as well as black tarry stools for the last 2 days' duration. Hemoglobin is 7.6. He received one unit of PRBC transfusion and is currently receiving second unit of PRBC transfusion. Most likely we are dealing with an upper GI source of bleeding. 2. Atrial fibrillation, on Eliquis, currently on hold. 3. History of coronary artery disease, status post myocardial infarction in the past. 4. History of aortic valve replacement. 5. History of chronic kidney disease. 6. History of diabetes mellitus, hypertension and hyperlipidemia. RECOMMENDATIONS: 1. Continue with Protonix 40 mg twice daily. 2. Monitor CBC daily. 3. Agree with PRBC transfusion. 4. Continue to hold Eliquis. 5. Will proceed with an upper endoscopy tomorrow. Discussed with the patient risks, benefits and complications, and he is agreeable to it. Thank you for this consultation. YOSSI / JEVON: [id number] /
--- NOTE | 2020-11-07 16:01 | P.PN ---
Subjective Progress Note Date: 11/07/20 Principal diagnosis: GI bleeding Patient had no further episodes of bleeding. He is currently hungry and asking for food. He denied having any abdominal pain, chest pain or shortness of breath Objective - Vital Signs Vital signs: Vital Signs Temp 98.1 F 11/07/20 15:27 Pulse 55 L 11/07/20 15:20 Resp 20 11/07/20 15:20 BP 130/61 11/07/20 15:20 Pulse Ox 98 11/07/20 15:20 Intake & Output 11/06/20 11/07/20 11/07/20 18:59 06:59 18:59 Intake Total 0 310 0 Output Total 1150 475 Balance 0 -840 -475 Weight 257.6 kg 118.5 kg Intake: Oral 0 Blood Product 0 310 0 Rc As-1 Unit 0 [id number] Rc As-1 Unit 0 310 [id number] Output: Urine 1150 475 Other: Voiding Method Diaper External Catheter # Voids 1 2 # Bowel Movements 1 - Exam Constitutional: No acute distress, conversant, pleasant Eyes:Anicteric sclerae, moist conjunctiva, no lid-lag, PERRLA, ENMT: Oropharynx clear, no erythema, exudates Neck: Supple, FROM, no masses, or JVD, No carotid bruits, No thyromegaly Lungs: Clear to auscultation, Clear to percussion, Normal respiratory effort, no accessory muscle use Cardiovascular: Heart regular in rate and rhythm, No murmurs, gallops, or rubs, No peripheral edema Abdominal: Soft, Nontender, no guarding, rebound or rigidity, Normoactive bowel sounds, No hepatomegaly, No splenomegaly, No palpable mass Skin: Normal temperature, tone, texture, turgor, no induration, No subcutaneous nodules, No rash, lesions, No ulcers Extremities: No digital cyanosis, No clubbing, Pedal pulses intact and symmetrical, Radial pulses intact and symmetrical, No calf tenderness Psychiatric: Alert and oriented to person, place and time, appropriate affect, intact judgement Neuro: Muscles Strength 5/5 in all 4 extremities, Sensation to light touch grossly present throughout, Cranial nerves II-XII grossly intact, no focal sensory deficits - Labs CBC & Chem 7: 11/07/20 07:32 11/07/20 07:32 Labs: Abnormal Lab Results - Last 24 Hours (Table) 11/06/20 11/06/20 11/06/20 Range/Units 14:57 16:37 20:31 RBC (4.30-5.90) m/uL Hgb (13.0-17.5) gm/dL Hct (39.0-53.0) % Sodium (137-145) mmol/L Potassium 6.5 H* (3.5-5.1) mmol/L Chloride (98-107) mmol/L Carbon Dioxide (22-30) mmol/L BUN (9-20) mg/dL Creatinine (0.66-1.25) mg/dL Glucose (74-99) mg/dL POC Glucose (mg/dL) 232 H (75-99) mg/dL Alkaline Phosphatase (38-126) U/L Total Protein (6.3-8.2) g/dL Albumin (3.5-5.0) g/dL Urine Blood (Negative) Ur Leukocyte Esterase (Negative) Urine RBC (0-5) /hpf Urine WBC (0-5) /hpf Urine Bacteria (None) /hpf Crossmatch See Detail 11/06/20 11/06/20 11/07/20 Range/Units 20:46 20:46 06:16 RBC 2.50 L (4.30-5.90) m/uL Hgb 8.5 L (13.0-17.5) gm/dL Hct 23.8 L (39.0-53.0) % Sodium 134 L (137-145) mmol/L Potassium 5.6 H (3.5-5.1) mmol/L Chloride 111 H (98-107) mmol/L Carbon Dioxide 14 L (22-30) mmol/L BUN 141 H* (9-20) mg/dL Creatinine 2.42 H (0.66-1.25) mg/dL Glucose 211 H (74-99) mg/dL POC Glucose (mg/dL) 223 H (75-99) mg/dL Alkaline Phosphatase (38-126) U/L Total Protein (6.3-8.2) g/dL Albumin (3.5-5.0) g/dL Urine Blood (Negative) Ur Leukocyte Esterase (Negative) Urine RBC (0-5) /hpf Urine WBC (0-5) /hpf Urine Bacteria (None) /hpf Crossmatch 11/07/20 11/07/20 11/07/20 Range/Units 07:32 07:32 11:42 RBC 2.40 L (4.30-5.90) m/uL Hgb 7.6 L (13.0-17.5) gm/dL Hct 22.2 L (39.0-53.0) % Sodium 136 L (137-145) mmol/L Potassium (3.5-5.1) mmol/L Chloride 108 H (98-107) mmol/L Carbon Dioxide (22-30) mmol/L BUN 122 H* (9-20) mg/dL Creatinine 2.19 H (0.66-1.25) mg/dL Glucose 189 H (74-99) mg/dL POC Glucose (mg/dL) 137 H (75-99) mg/dL Alkaline Phosphatase 37 L (38-126) U/L Total Protein 5.4 L (6.3-8.2) g/dL Albumin 2.8 L (3.5-5.0) g/dL Urine Blood (Negative) Ur Leukocyte Esterase (Negative) Urine RBC (0-5) /hpf Urine WBC (0-5) /hpf Urine Bacteria (None) /hpf Crossmatch 11/07/20 Range/Units 14:45 RBC (4.30-5.90) m/uL Hgb (13.0-17.5) gm/dL Hct (39.0-53.0) % Sodium (137-145) mmol/L Potassium (3.5-5.1) mmol/L Chloride (98-107) mmol/L Carbon Dioxide (22-30) mmol/L BUN (9-20) mg/dL Creatinine (0.66-1.25) mg/dL Glucose (74-99) mg/dL POC Glucose (mg/dL) (75-99) mg/dL Alkaline Phosphatase (38-126) U/L Total Protein (6.3-8.2) g/dL Albumin (3.5-5.0) g/dL Urine Blood Moderate H (Negative) Ur Leukocyte Esterase Small H (Negative) Urine RBC 11 H (0-5) /hpf Urine WBC 6 H (0-5) /hpf Urine Bacteria Rare H (None) /hpf Crossmatch Assessment and Plan Plan: GI bleeding Seen by GI, planning EGD in a.m., start clear liquids for now Transfuse 1 unit of packed red blood cells. PPI IV BID Hold AC ZANDRA on CKD stage 3, hyperkalemia K normalized, recheck in a.m. Likely sec to above IV fluids Avoid nephrotoxic meds Recheck cr in am Seen by nephrology Atrial Fibrillation with RVR Hold oral anticoagulation Metoprolol 2.5 mg IV q 6hrs PRN for HR more than 110 Diabetes Mellitus type 2 Hold oral hypoglycemics and patients home insulin Continue SSI CAD HTN Stable, hold meds for now. Admitted to inpatient, expected length of stay more than 2 midnights.
[2020-11-07 16:40] LABS: % Iron Saturation 86.84 (15.00-50.00)
[2020-11-07 16:49] LABS: Ferritin 77.1 ng/mL (22.0-322.0)
[2020-11-07 17:11] LABS: Glucose,Whole Blood 167 mg/dL (75-99)
[2020-11-07 20:35] LABS: Glucose,Whole Blood 102 mg/dL (75-99)
[2020-11-08 06:18] LABS: Glucose,Whole Blood 105 mg/dL (75-99)
[2020-11-08] MEDS: LACTATED RINGERS 1,000 ML IV SCH (06:20)
[2020-11-08] MEDS: INSULIN ASPART (NovoLOG) 100 UNIT/ML VIAL SQ SCH ×4 (06:21→20:24)
[2020-11-08 08:27] LABS: Basophils # (A) 0.1 k/uL (0-0.2); Basophils % (A) 1 %; Eosinophils # (A) 0.4 k/uL (0-0.7); Eosinophils % (A) 5 %; HCT 25.5 % (39.0-53.0); HGB 8.9 gm/dL (13.0-17.5); Lymphocytes # (A) 1.3 k/uL (1.0-4.8); Lymphocytes % (A) 15 %; MCH 32.6 pg (25.0-35.0); MCHC 34.7 g/dL (31.0-37.0); MCV 93.9 fL (80.0-100.0); Mean Platelet Volume 7.8; Monocytes # (A) 0.4 k/uL (0-1.0); Monocytes % (A) 5 %; Neutrophils # (A) 6.7 k/uL (1.3-7.7); Neutrophils % (A) 74 %; Platelet Count 151 k/uL (150-450); RBC 2.72 m/uL (4.30-5.90); RDW 14.5 % (11.5-15.5)
[2020-11-08] MEDS: PANTOPRAZOLE 40 MG/10 ML VIAL IVP SCH ×2 (08:39→22:20)
[2020-11-08 09:01] LABS: Calcium 8.8 mg/dL (8.4-10.2); Magnesium 1.8 mg/dL (1.6-2.3); Phosphorus 3.2 mg/dL (2.5-4.5); Potassium 5.6 mmol/L (3.5-5.1)
[2020-11-08] MEDS ORDERED: SODIUM BICARB 8.4% 50 ML SYR (1 MEQ/ML) IV STA (10:11)
[2020-11-08] MEDS ORDERED: DEXTROSE 50% SYRINGE 50 ML IVP STA (10:49)
[2020-11-08] MEDS ORDERED: INSULIN REGULAR 100 UNIT/ML VIAL IV ONE (10:49)
--- NOTE | 2020-11-08 11:07 | P.PN ---
Subjective Patient is seen in follow-up for acute kidney injury on chronic kidney disease. Renal function back to baseline. Scheduled for EGD today. Maintain on lactated Ringer's. Potassium level slightly on the higher side at 5.6. No edema. No chest pain or shortness of breath. Nonoliguric. Vital signs are stable. General: The patient appeared well nourished and normally developed. HEENT: Head exam is unremarkable. Neck is without jugular venous distension. LUNGS: Breath sounds decreased. HEART: Rate and Rhythm are regular. ABDOMEN: Soft, no distention noted. EXTREMITITES: AKA noted. No edema. Objective - Vital Signs Vital signs: Vital Signs Temp 98.6 F 11/08/20 08:00 Pulse 72 11/08/20 08:00 Resp 18 11/08/20 08:00 BP 125/56 11/08/20 08:00 Pulse Ox 98 11/08/20 08:00 Intake & Output 11/07/20 11/08/20 11/08/20 18:59 06:59 18:59 Intake Total 240 310 0 Output Total 625 1200 Balance -385 -890 0 Weight 117 kg Intake: Oral 240 0 Blood Product 0 310 Rc As-1 Unit 0 310 [id number] Output: Urine 625 1200 Other: Voiding Method External Catheter External Catheter # Voids 2 # Bowel Movements 1 - Labs CBC & Chem 7: 11/08/20 07:46 11/08/20 07:46 Labs: Abnormal Lab Results - Last 24 Hours (Table) 11/06/20 11/07/20 11/07/20 Range/Units 14:57 07:32 11:42 RBC (4.30-5.90) m/uL Hgb (13.0-17.5) gm/dL Hct (39.0-53.0) % Potassium (3.5-5.1) mmol/L Chloride (98-107) mmol/L Carbon Dioxide (22-30) mmol/L BUN (9-20) mg/dL Creatinine (0.66-1.25) mg/dL Glucose (74-99) mg/dL POC Glucose (mg/dL) 137 H (75-99) mg/dL Iron 231 H (65-175) ug/dL % Saturation 86.84 H (15.00-50.00) Urine Blood (Negative) Ur Leukocyte Esterase (Negative) Urine RBC (0-5) /hpf Urine WBC (0-5) /hpf Urine Bacteria (None) /hpf Crossmatch See Detail 11/07/20 11/07/20 11/07/20 Range/Units 14:45 16:44 20:32 RBC (4.30-5.90) m/uL Hgb (13.0-17.5) gm/dL Hct (39.0-53.0) % Potassium (3.5-5.1) mmol/L Chloride (98-107) mmol/L Carbon Dioxide (22-30) mmol/L BUN (9-20) mg/dL Creatinine (0.66-1.25) mg/dL Glucose (74-99) mg/dL POC Glucose (mg/dL) 167 H 102 H (75-99) mg/dL Iron (65-175) ug/dL % Saturation (15.00-50.00) Urine Blood Moderate H (Negative) Ur Leukocyte Esterase Small H (Negative) Urine RBC 11 H (0-5) /hpf Urine WBC 6 H (0-5) /hpf Urine Bacteria Rare H (None) /hpf Crossmatch 11/08/20 11/08/20 11/08/20 Range/Units 06:17 07:46 07:46 RBC 2.72 L (4.30-5.90) m/uL Hgb 8.9 L (13.0-17.5) gm/dL Hct 25.5 L (39.0-53.0) % Potassium 5.6 H (3.5-5.1) mmol/L Chloride 113 H (98-107) mmol/L Carbon Dioxide 20 L (22-30) mmol/L BUN 76 H (9-20) mg/dL Creatinine 1.48 H (0.66-1.25) mg/dL Glucose 103 H (74-99) mg/dL POC Glucose (mg/dL) 105 H (75-99) mg/dL Iron (65-175) ug/dL % Saturation (15.00-50.00) Urine Blood (Negative) Ur Leukocyte Esterase (Negative) Urine RBC (0-5) /hpf Urine WBC (0-5) /hpf Urine Bacteria (None) /hpf Crossmatch Assessment and Plan Plan: Assessment: 1. Acute kidney injury mostly prerenal from intravascular volume depletion improved with IV hydration. Creatinine 1.48 today. 2. Chronic kidney disease stage IIIB with baseline creatinine 1.5-1.8. 3. Hyperkalemia secondary to acute kidney injury, metabolic acidosis, lisinopril and spironolactone. 4. GI bleed. Scheduled for EGD today. 5. Metabolic acidosis secondary to acute kidney injury, IV fluids and diarrhea. Plan: I will change lactated Ringer's to normal saline at 50 mL an hour. 10 units IV regular insulin with an amp of D50 and 2 A of sodium bicarbonate IV push now. Add oral bicarb as well. Repeat potassium level in 2 hours. Avoid nephrotoxins. Continue to monitor renal function and urine output. Continue to hold SOLOMON inhibitor and Aldactone.
[2020-11-08] MEDS: SODIUM CHLORIDE 0.9% 1,000 ML IV SCH ×2 (11:32→19:02)
--- NOTE | 2020-11-08 12:06 | CDI ---
Documentation Clarification Form Date: 11/08/2020 11:49:55 AM From: Maria Esther Acosta RN, CCDS Admit Date: 11/06/2020 05:12:00 PM Patient Name: Ochoa Kruse Visit Number: [id number] Discharge Date: ATTENTION: The Clinical Documentation Specialists (CDI) and [facility] Coding Staff appreciate your assistance in clarifying documentation. Please respond to the clarification below the line at the bottom and electronically sign. The CDI & [facility] Coding staff will review the response and follow-up if needed. Please note: Queries are made part of the Legal Health Record. If you have any questions, please contact the author of this message via ITS. Dr. Dian Silverman Atrial Fibrillation is documented in the ED, H/P and subsequent progress notes. Please render your opinion on the type of atrial fibrillation you are treating. History/Risk Factors: Atrial Fibrillation, Diabetes mellitus, Coronary artery disease Clinical Indicators:80-year-old mile present to ED on 11/06 with complaints of vomiting blood. he also had some black tarry stools over the past day or two. He has a known history of atrial fibrillation with ongoing treatment with Eliquis. 11/06 Vital signs: 109/57 129 18 98 99 % RA 11/06 EKG/telemetry: Atrial Fibrillation with RVR vent rate 119 bpm. Treatment: Telemetry monitoring Eliquis (On hold) Monitor Labs CBC Daily .9NS 1,000 Bolus X1 metoprolol 2.5 MB IV Q6 HRS PRN HR >110 In your professional opinion, can you please clarify the type of Atrial Fibrillation, if known? Chronic/Permanent Paroxysmal Persistent Other, please specify Unable to determine (Last Revision: November 2017) Chronic/Permanent MTDD
[2020-11-08 12:13] LABS: Glucose,Whole Blood 210 mg/dL (75-99)
[2020-11-08] MEDS ORDERED: PROPOFOL 10 MG/ML 20 ML VIAL IV ONE (13:15)
[2020-11-08] MEDS ORDERED: LIDOCAINE 1% INJ 10MG/ML (20 ML MDV) ONE (13:15)
[2020-11-08] MEDS ORDERED: IV FLUID CONTINUATION 1,000 ML IV ONE (13:16)
--- NOTE | 2020-11-08 13:34 | P.PCN ---
Date of Procedure: 11/08/20 Procedure(s) Performed: BRIEF HISTORY: Patient is a 80-year-old, pleasant, white male male admitted hospital with acute GI bleed. He had multiple episodes of black tarry stools. Hemoglobin was 7.6 g/d at admission.. He required 2 units of PRBC transfusion.. Patient has been on a Eliquis which is currently on hold. PROCEDURE PERFORMED: Esophagogastroduodenoscopy with cautery and biopsy. PREOPERATIVE DIAGNOSIS: Acute GI bleed. IV sedation per anesthesia. PROCEDURE: After informed consent was obtained, the patient was brought into the endoscopy unit. IV sedation was administered by Anesthesia under continuous monitoring. Initially the Olympus GIF-140 video endoscope was inserted into the mouth. Esophagus intubated without any difficulty. It was gradually advanced into the stomach and duodenum and carefully examined. The bulb of the duodenum had a 5 mm superficial ulcer with no active bleeding. In the second part of the duodenum there where a few scattered angiectasia identified which were cauterized using a gold probe.. The scope at this time was withdrawn to the stomach, adequately insufflated with air, and upon careful examination, mucosa of the antrum, had gastritis and biopsies were done from this area. The body, cardia and the fundus appeared normal. The scope was then withdrawn into the esophagus. The GE junction was located at 39 cm from the incisors. The esophagus appeared normal. There were no erosions or ulcerations seen and the patient tolerated the procedure well. IMPRESSION: 1. 5 mm duodenal bulbar ulcer with no active bleeding. 2. Scattered angiectasia in the duodenal bulb status post cautery using a gold probe. 3. Mild gastritis RECOMMENDATIONS: The findings of this examination were discussed with the patient. Await biopsy results. Continue Protonix 40 mg twice daily. Resume eliquis in 2-3 days.
[2020-11-08] MEDS ORDERED: METOPROLOL TARTRATE 25 MG TAB PO STA (14:30)
[2020-11-08] MEDS: METOPROLOL TARTRATE 5 MG/5 ML VIAL IVP PRN ×2 (14:36→17:55)
--- NOTE | 2020-11-08 16:51 | P.PN ---
Subjective Progress Note Date: 11/08/20 Principal diagnosis: GI bleeding Patient reported no hematemesis, coffee-ground emesis, hematochezia or black stools since admission. He is currently doing well, no complaints. No overnight event. Objective - Vital Signs Vital signs: Vital Signs Temp 98.4 F 11/08/20 14:20 Pulse 97 11/08/20 14:37 Resp 18 11/08/20 14:37 BP 98/62 11/08/20 14:37 Pulse Ox 97 11/08/20 14:37 Intake & Output 11/07/20 11/08/20 11/08/20 18:59 06:59 18:59 Intake Total 240 310 150 Output Total 625 1200 Balance -385 -890 150 Weight 117 kg Intake: IV 150 Oral 240 0 Blood Product 0 310 Rc As-1 Unit 0 310 [id number] Output: Urine 625 1200 Other: Voiding Method External Catheter External Catheter External Catheter # Voids 2 # Bowel Movements 1 - Exam Constitutional: No acute distress, conversant, pleasant Eyes:Anicteric sclerae, moist conjunctiva, no lid-lag, PERRLA, ENMT: Oropharynx clear, no erythema, exudates Neck: Supple, FROM, no masses, or JVD, No carotid bruits, No thyromegaly Lungs: Clear to auscultation, Clear to percussion, Normal respiratory effort, no accessory muscle use Cardiovascular: Heart regular in rate and rhythm, No murmurs, gallops, or rubs, No peripheral edema Abdominal: Soft, Nontender, no guarding, rebound or rigidity, Normoactive bowel sounds, No hepatomegaly, No splenomegaly, No palpable mass Skin: Normal temperature, tone, texture, turgor, no induration, No subcutaneous nodules, No rash, lesions, No ulcers Extremities: No digital cyanosis, No clubbing, Pedal pulses intact and symmetrical, Radial pulses intact and symmetrical, No calf tenderness Psychiatric: Alert and oriented to person, place and time, appropriate affect, intact judgement Neuro: Muscles Strength 5/5 in all 4 extremities, Sensation to light touch grossly present throughout, Cranial nerves II-XII grossly intact, no focal sensory deficits - Labs CBC & Chem 7: 11/08/20 07:46 11/08/20 15:16 Labs: Abnormal Lab Results - Last 24 Hours (Table) 0311/07/20 11/07/20 Range/Units 14:57 07:32 16:44 RBC (4.30-5.90) m/uL Hgb (13.0-17.5) gm/dL Hct (39.0-53.0) % Potassium (3.5-5.1) mmol/L Chloride (98-107) mmol/L Carbon Dioxide (22-30) mmol/L BUN (9-20) mg/dL Creatinine (0.66-1.25) mg/dL Glucose (74-99) mg/dL POC Glucose (mg/dL) 167 H (75-99) mg/dL Iron 231 H (65-175) ug/dL % Saturation 86.84 H (15.00-50.00) Crossmatch See Detail 11/07/20 11/08/20 11/08/20 Range/Units 20:32 06:17 07:46 RBC 2.72 L (4.30-5.90) m/uL Hgb 8.9 L (13.0-17.5) gm/dL Hct 25.5 L (39.0-53.0) % Potassium (3.5-5.1) mmol/L Chloride (98-107) mmol/L Carbon Dioxide (22-30) mmol/L BUN (9-20) mg/dL Creatinine (0.66-1.25) mg/dL Glucose (74-99) mg/dL POC Glucose (mg/dL) 102 H 105 H (75-99) mg/dL Iron (65-175) ug/dL % Saturation (15.00-50.00) Crossmatch 11/08/20 11/08/20 11/08/20 Range/Units 07:46 11:49 15:16 RBC (4.30-5.90) m/uL Hgb (13.0-17.5) gm/dL Hct (39.0-53.0) % Potassium 5.6 H 5.3 H (3.5-5.1) mmol/L Chloride 113 H (98-107) mmol/L Carbon Dioxide 20 L (22-30) mmol/L BUN 76 H (9-20) mg/dL Creatinine 1.48 H (0.66-1.25) mg/dL Glucose 103 H (74-99) mg/dL POC Glucose (mg/dL) 210 H (75-99) mg/dL Iron (65-175) ug/dL % Saturation (15.00-50.00) Crossmatch Assessment and Plan Plan: GI bleeding Status post EGD that showed duodenal ulcer, no active bleeding -Awaiting biopsy results -Continue PPI twice a day -Status post 1 unit of blood transfusion, currently hemoglobin stable -Transfuse 1 unit of packed red blood cells. -Hold AC for the time being per GI ZANDRA on CKD stage 3, hyperkalemia Improving K up again to 2.6. Given 10 units IV regular insulin with an amp of D50 and 2 A of sodium bicarbonate IV push, oral bicarb added as well. Recheck in a.m. Continue IV fluids Avoid nephrotoxic meds Nephrology following Atrial Fibrillation with RVR Hold oral anticoagulation for 2-3 days per GI Metoprolol 2.5 mg IV q 6hrs PRN for HR more than 110 Urinary retention Olivera placed Has hx of urine retention from urosepsis according to daughter, olivera was just out 1 week ago. Will d/c GEOVANI Diabetes Mellitus type 2 Hold oral hypoglycemics and patients home insulin Continue SSI CAD HTN Stable, hold meds for now. D/W daughter.
[2020-11-08 17:27] LABS: Glucose,Whole Blood 188 mg/dL (75-99)
[2020-11-08] MEDS: SODIUM BICARBONATE TAB 650 MG TAB PO SCH ×2 (17:56→21:57)
[2020-11-08] MEDS ORDERED: ACETAMINOPHEN TAB 325 MG TAB PO PRN (18:29)
[2020-11-08] MEDS ORDERED: CITALOPRAM HYDROBROMIDE 20 MG TAB PO SCH (18:30)
[2020-11-08 20:06] LABS: Glucose,Whole Blood 171 mg/dL (75-99)
[2020-11-08] MEDS: CITALOPRAM HYDROBROMIDE 20 MG TAB PO SCH ×2 (22:19→22:28)
[2020-11-08] MEDS: ATORVASTATIN 40 MG TAB PO SCH (22:20)
[2020-11-08] MEDS: carvediloL 12.5 MG TAB PO SCH (22:20)
[2020-11-08] MEDS: ACETAMINOPHEN TAB 325 MG TAB PO PRN (23:28)
[2020-11-09 06:14] LABS: Glucose,Whole Blood 116 mg/dL (75-99)
[2020-11-09] MEDS: INSULIN ASPART (NovoLOG) 100 UNIT/ML VIAL SQ SCH ×4 (06:19→20:56)
[2020-11-09 07:49] LABS: Basophils # (A) 0.1 k/uL (0-0.2); Basophils % (A) 1 %; Eosinophils # (A) 0.7 k/uL (0-0.7); Eosinophils % (A) 8 %; HCT 24.5 % (39.0-53.0); HGB 8.5 gm/dL (13.0-17.5); Lymphocytes # (A) 1.5 k/uL (1.0-4.8); Lymphocytes % (A) 17 %; MCH 32.5 pg (25.0-35.0); MCHC 34.6 g/dL (31.0-37.0); MCV 93.7 fL (80.0-100.0); Mean Platelet Volume 7.7; Monocytes # (A) 0.5 k/uL (0-1.0); Monocytes % (A) 6 %; Neutrophils # (A) 5.8 k/uL (1.3-7.7); Neutrophils % (A) 67 %; Platelet Count 143 k/uL (150-450); RBC 2.61 m/uL (4.30-5.90); RDW 14.5 % (11.5-15.5); WBC 8.7 k/uL (3.8-10.6)
[2020-11-09 07:59] LABS: Calcium 8.3 mg/dL (8.4-10.2); Magnesium 1.8 mg/dL (1.6-2.3); Potassium 4.8 mmol/L (3.5-5.1)
[2020-11-09] MEDS: SODIUM BICARBONATE TAB 650 MG TAB PO SCH ×2 (10:05→20:55)
[2020-11-09] MEDS: carvediloL 12.5 MG TAB PO SCH ×2 (10:05→20:55)
[2020-11-09] MEDS: PANTOPRAZOLE 40 MG/10 ML VIAL IVP SCH ×2 (10:06→20:56)
[2020-11-09] MEDS: CITALOPRAM HYDROBROMIDE 20 MG TAB PO SCH (10:06)
--- NOTE | 2020-11-09 10:17 | P.PN ---
Subjective Patient is seen in follow-up for acute kidney injury on chronic kidney disease. Renal function back to baseline. Potassium level is normal today. No edema. No chest pain or shortness of breath. Nonoliguric. Vital signs are stable. General: The patient appeared well nourished and normally developed. HEENT: Head exam is unremarkable. Neck is without jugular venous distension. LUNGS: Breath sounds decreased. HEART: Rate and Rhythm are regular. ABDOMEN: Soft, no distention noted. EXTREMITITES: AKA noted. No edema. Objective - Vital Signs Vital signs: Vital Signs Temp 98 F 11/09/20 03:50 Pulse 83 11/09/20 03:50 Resp 17 11/09/20 03:50 BP 104/60 11/09/20 03:50 Pulse Ox 98 11/09/20 03:50 Intake & Output 11/08/20 11/09/20 11/09/20 18:59 06:59 18:59 Intake Total 930 118 Output Total 600 1300 Balance 330 -1300 118 Weight 120 kg Intake: IV 150 Oral 780 118 Output: Urine 600 1300 Other: Voiding Method External Catheter External Catheter - Labs CBC & Chem 7: 11/09/20 07:15 11/09/20 07:15 Labs: Abnormal Lab Results - Last 24 Hours (Table) 11/08/20 11/08/20 11/08/20 Range/Units 11:49 15:16 17:15 RBC (4.30-5.90) m/uL Hgb (13.0-17.5) gm/dL Hct (39.0-53.0) % Plt Count (150-450) k/uL Potassium 5.3 H (3.5-5.1) mmol/L Chloride (98-107) mmol/L BUN (9-20) mg/dL Creatinine (0.66-1.25) mg/dL Glucose (74-99) mg/dL POC Glucose (mg/dL) 210 H 188 H (75-99) mg/dL Calcium (8.4-10.2) mg/dL 11/08/20 11/09/20 11/09/20 Range/Units 20:05 06:12 07:15 RBC (4.30-5.90) m/uL Hgb (13.0-17.5) gm/dL Hct (39.0-53.0) % Plt Count (150-450) k/uL Potassium (3.5-5.1) mmol/L Chloride 110 H (98-107) mmol/L BUN 51 H (9-20) mg/dL Creatinine 1.44 H (0.66-1.25) mg/dL Glucose 108 H (74-99) mg/dL POC Glucose (mg/dL) 171 H 116 H (75-99) mg/dL Calcium 8.3 L (8.4-10.2) mg/dL 11/09/20 Range/Units 07:15 RBC 2.61 L (4.30-5.90) m/uL Hgb 8.5 L (13.0-17.5) gm/dL Hct 24.5 L (39.0-53.0) % Plt Count 143 L (150-450) k/uL Potassium (3.5-5.1) mmol/L Chloride (98-107) mmol/L BUN (9-20) mg/dL Creatinine (0.66-1.25) mg/dL Glucose (74-99) mg/dL POC Glucose (mg/dL) (75-99) mg/dL Calcium (8.4-10.2) mg/dL Assessment and Plan Plan: Assessment: 1. Acute kidney injury mostly prerenal from intravascular volume depletion improved with IV hydration. Creatinine 1.44 today. 2. Chronic kidney disease stage IIIB with baseline creatinine 1.5-1.8. 3. Hyperkalemia secondary to acute kidney injury, metabolic acidosis, lisinopril and spironolactone. 4. GI bleed. Status post EGD which revealed a 5 mm duodenal ulcer and mild gastritis. 5. Metabolic acidosis secondary to acute kidney injury, IV fluids and diarrhea. Better. Maintained on oral bicarb. Plan: Hep-Lock IV fluids. Encourage oral intake. Avoid nephrotoxins. Continue to monitor renal function and urine output. Continue to hold SOLOMON inhibitor and Aldactone.
--- NOTE | 2020-11-09 10:43 | CDI ---
Documentation Clarification Form Date: 11/09/2020 10:23:25 AM From: Maria Esther Acosta RN, CCDS Admit Date: 11/06/2020 05:12:00 PM Patient Name: Ochoa Kruse Visit Number: [id number] Discharge Date: ATTENTION: The Clinical Documentation Specialists (CDI) and [facility] Coding Staff appreciate your assistance in clarifying documentation. Please respond to the clarification below the line at the bottom and electronically sign. The CDI & [facility] Coding staff will review the response and follow-up if needed. Please note: Queries are made part of the Legal Health Record. If you have any questions, please contact the author of this message via ITS. Dr. Ruba Jackson Please render your opinion on the clinical significance of the patients hemoglobin/hematocrit levels. History/Risk Factors: Atrial fibrillation Clinical indicators: 80-year-old male present to ED on 11/06 with complaints of black tarry stools and coffee-ground emesis for the last 2 days prior to arrival. He has a history of atrial fibrillation, on Eliquis. 11/06 Vital signs on admission: 109/57 129 18 98 99% RA 11/06 HGB 8.1 HCT 23.3, Stool Occult Blood: Positive 11/07 GI Consult note: Acute upper gastrointestional bleed. Hemoglobin is 7.6. Treatment: Monitor CBC daily Transfuse PRBC (total is 2 units) Continue to hold Eliquis Protonix 40 mg IV BID 11/08 EGD. 5 mm duodenal bulbar ulcer with no active bleeding. Scattered angiectasia in the duodenal bulb status post cautery using a gold probe. Mild gastritis. In order to capture the severity of condition, please clarify if the labs/clinical indicators signify: Acute blood loss anemia Acute on chronic blood loss anemia Chronic blood loss anemia Anemia of chronic kidney disease Unable to determine Other, please specify (Last Form Revision: October 2019) Anemia is secondary to acute blood loss secondary to duodenal ulcer Silver AMOS
--- NOTE | 2020-11-09 10:47 | P.PN ---
Subjective Progress Note Date: 11/09/20 Principal diagnosis: Acute upper GI bleed This is a 80-year-old pleasant white male who was admitted to the hospital with black tarry stools and coffee-ground emesis. He has a history of coronary artery disease and atrial fibrillation and was on Eliquis which is on hold at this time. He is status post 2 units of PRBC transfusion. Yesterday he underwent an upper endoscopy which revealed a 5 mm to 1 no bulbar ulcer with no active bleeding, scattered angiectasia in the duodenal bulb status post cautery using gold probe ablation, and mild gastritis. Today he is seen and examined lying in bed. He denies any abdominal pain, nausea, or vomiting. He states he has not had another bowel movement. He states he has decreased appetite, otherwise feels well. Objective - Vital Signs Vital signs: Vital Signs Temp 98 F 11/09/20 03:50 Pulse 83 11/09/20 03:50 Resp 17 11/09/20 03:50 BP 104/60 11/09/20 03:50 Pulse Ox 98 11/09/20 03:50 Intake & Output 11/08/20 11/09/20 11/09/20 18:59 06:59 18:59 Intake Total 930 118 Output Total 600 1300 Balance 330 -1300 118 Weight 120 kg Intake: IV 150 Oral 780 118 Output: Urine 600 1300 Other: Voiding Method External Catheter External Catheter - Exam General appearance: The patient is alert, oriented, appears in no acute distress. Obese. HET: Head is normocephalic and atraumatic. Conjunctiva pink. Sclera anicteric. Neck: Supple without lymphadenopathy. Abdomen: Soft, obese, nontender, nondistended with bowel sounds. No guarding or rigidity. Extremities: Normal skin color and turgor. No pedal edema Skin: No rashes, no jaundice Neurological: No focal deficits. Alert and oriented 3. - Labs CBC & Chem 7: 11/09/20 07:15 11/09/20 07:15 Labs: Abnormal Lab Results - Last 24 Hours (Table) 11/08/20 11/08/20 11/08/20 Range/Units 11:49 15:16 17:15 RBC (4.30-5.90) m/uL Hgb (13.0-17.5) gm/dL Hct (39.0-53.0) % Plt Count (150-450) k/uL Potassium 5.3 H (3.5-5.1) mmol/L Chloride (98-107) mmol/L BUN (9-20) mg/dL Creatinine (0.66-1.25) mg/dL Glucose (74-99) mg/dL POC Glucose (mg/dL) 210 H 188 H (75-99) mg/dL Calcium (8.4-10.2) mg/dL 11/08/20 11/09/20 11/09/20 Range/Units 20:05 06:12 07:15 RBC (4.30-5.90) m/uL Hgb (13.0-17.5) gm/dL Hct (39.0-53.0) % Plt Count (150-450) k/uL Potassium (3.5-5.1) mmol/L Chloride 110 H (98-107) mmol/L BUN 51 H (9-20) mg/dL Creatinine 1.44 H (0.66-1.25) mg/dL Glucose 108 H (74-99) mg/dL POC Glucose (mg/dL) 171 H 116 H (75-99) mg/dL Calcium 8.3 L (8.4-10.2) mg/dL 11/09/20 Range/Units 07:15 RBC 2.61 L (4.30-5.90) m/uL Hgb 8.5 L (13.0-17.5) gm/dL Hct 24.5 L (39.0-53.0) % Plt Count 143 L (150-450) k/uL Potassium (3.5-5.1) mmol/L Chloride (98-107) mmol/L BUN (9-20) mg/dL Creatinine (0.66-1.25) mg/dL Glucose (74-99) mg/dL POC Glucose (mg/dL) (75-99) mg/dL Calcium (8.4-10.2) mg/dL Assessment and Plan (1) Acute upper GI bleed Narrative/Plan: This is a 80-year-old gentleman who presented to the hospital with coffee-ground emesis and black tarry stools for 2-3 days duration. His initial hemoglobin was 7.6, he is status post 2 units of PRBC transfusion. The patient has known coronary artery disease and atrial fibrillation and was on Eliquis. There is currently on hold. He is status post upper endoscopy which revealed a 5 mm to 1 no bulbar ulcer with no active bleeding and scattered angiectasia in the duodenal bulb status post cautery using cold probe ablation, and mild gastritis. Current Visit: Yes Status: Acute Code(s): K92.2 - GASTROINTESTINAL HEMORRHAGE, UNSPECIFIED SNOMED Code(s): 55318911 (2) History of atrial fibrillation Narrative/Plan: Eliquis is currently on Current Visit: Yes Status: Acute Code(s): Z86.79 - PERSONAL HISTORY OF OTHER DISEASES OF THE CIRCULATORY SYSTEM SNOMED Code(s): 152709860 (3) Chronic kidney disease Current Visit: Yes Status: Acute Code(s): N18.9 - CHRONIC KIDNEY DISEASE, UNSPECIFIED SNOMED Code(s): 352425828 (4) Coronary artery disease Current Visit: No Status: Acute Code(s): I25.10 - ATHSCL HEART DISEASE OF [place] CORONARY ARTERY W/O ANG PCTRS SNOMED Code(s): 82966105 Plan: 1. Supportive care 2. Diet as tolerated 3. Continue Protonix 40 mg twice daily 4. Repeat CBC 5. Monitor for signs of GI bleed 6. May resume Eliquis in 2-3 days 7. Patient may be discharged home from gastroenterology standpoint with follow- up in 1-2 weeks for biopsy results 8. Recommend close follow up on an outpatient hemoglobin Thank you for this consultation, we will continue to follow Dr. Chanel Jackson I agree with the dictator's note, documented as a scribe by Micki Philip.
[2020-11-09 12:06] LABS: Glucose,Whole Blood 140 mg/dL (75-99)
--- NOTE | 2020-11-09 13:01 | P.PN ---
Subjective Progress Note Date: 11/09/20 Principal diagnosis: GI bleeding Patient has been doing well. Tolerating diet. No further episodes of bleeding. No current complaints. Objective - Vital Signs Vital signs: Vital Signs Temp 98 F 11/09/20 03:50 Pulse 83 11/09/20 03:50 Resp 17 11/09/20 03:50 BP 104/60 11/09/20 03:50 Pulse Ox 98 11/09/20 03:50 Intake & Output 11/08/20 11/09/20 11/09/20 18:59 06:59 18:59 Intake Total 930 118 Output Total 600 1300 Balance 330 -1300 118 Weight 120 kg Intake: IV 150 Oral 780 118 Output: Urine 600 1300 Other: Voiding Method External Catheter External Catheter - Exam Constitutional: No acute distress, conversant, pleasant Eyes:Anicteric sclerae, moist conjunctiva, no lid-lag, PERRLA, ENMT: Oropharynx clear, no erythema, exudates Neck: Supple, FROM, no masses, or JVD, No carotid bruits, No thyromegaly Lungs: Clear to auscultation, Clear to percussion, Normal respiratory effort, no accessory muscle use Cardiovascular: Heart regular in rate and rhythm, No murmurs, gallops, or rubs, No peripheral edema Abdominal: Soft, Nontender, no guarding, rebound or rigidity, Normoactive bowel sounds, No hepatomegaly, No splenomegaly, No palpable mass Skin: Normal temperature, tone, texture, turgor, no induration, No subcutaneous nodules, No rash, lesions, No ulcers Extremities: No digital cyanosis, No clubbing, Pedal pulses intact and symmetrical, Radial pulses intact and symmetrical, No calf tenderness Psychiatric: Alert and oriented to person, place and time, appropriate affect, intact judgement Neuro: Muscles Strength 5/5 in all 4 extremities, Sensation to light touch grossly present throughout, Cranial nerves II-XII grossly intact, no focal sensory deficits - Labs CBC & Chem 7: 11/09/20 07:15 11/09/20 07:15 Labs: Abnormal Lab Results - Last 24 Hours (Table) 11/08/20 11/08/20 11/08/20 Range/Units 15:16 17:15 20:05 RBC (4.30-5.90) m/uL Hgb (13.0-17.5) gm/dL Hct (39.0-53.0) % Plt Count (150-450) k/uL Potassium 5.3 H (3.5-5.1) mmol/L Chloride (98-107) mmol/L BUN (9-20) mg/dL Creatinine (0.66-1.25) mg/dL Glucose (74-99) mg/dL POC Glucose (mg/dL) 188 H 171 H (75-99) mg/dL Calcium (8.4-10.2) mg/dL 11/09/20 11/09/20 11/09/20 Range/Units 06:12 07:15 07:15 RBC 2.61 L (4.30-5.90) m/uL Hgb 8.5 L (13.0-17.5) gm/dL Hct 24.5 L (39.0-53.0) % Plt Count 143 L (150-450) k/uL Potassium (3.5-5.1) mmol/L Chloride 110 H (98-107) mmol/L BUN 51 H (9-20) mg/dL Creatinine 1.44 H (0.66-1.25) mg/dL Glucose 108 H (74-99) mg/dL POC Glucose (mg/dL) 116 H (75-99) mg/dL Calcium 8.3 L (8.4-10.2) mg/dL 11/09/20 Range/Units 12:03 RBC (4.30-5.90) m/uL Hgb (13.0-17.5) gm/dL Hct (39.0-53.0) % Plt Count (150-450) k/uL Potassium (3.5-5.1) mmol/L Chloride (98-107) mmol/L BUN (9-20) mg/dL Creatinine (0.66-1.25) mg/dL Glucose (74-99) mg/dL POC Glucose (mg/dL) 140 H (75-99) mg/dL Calcium (8.4-10.2) mg/dL Assessment and Plan Plan: GI bleeding Status post EGD that showed duodenal ulcer, no active bleeding -Awaiting biopsy results -Continue PPI twice a day -Status post 1 unit of blood transfusion, currently hemoglobin stable -Hold AC for the time being per GI ZANDRA on CKD stage 3, hyperkalemia Resolved Continue IV fluids Avoid nephrotoxic meds Nephrology following Atrial Fibrillation with RVR We'll resume and catheterization tomorrow Resume home Coreg Metoprolol 2.5 mg IV q 6hrs PRN for HR more than 110 Diabetes Mellitus type 2 Hold oral hypoglycemics and patients home insulin Continue SSI CAD HTN Stable, hold meds for now. D/W daughter. Anticipated discharge: Tomorrow, according to daughters she has to set up home care help so that patient can come back home. Disposition: Home with home care
[2020-11-09 16:58] LABS: Glucose,Whole Blood 206 mg/dL (75-99)
[2020-11-09] MEDS ORDERED: MELATONIN 5 MG TABLET PO PRN (19:22)
[2020-11-09 19:46] LABS: Glucose,Whole Blood 254 mg/dL (75-99)
[2020-11-09] MEDS: ATORVASTATIN 40 MG TAB PO SCH (20:55)
[2020-11-10 01:31] VITALS: RESP 18
[2020-11-10 03:17] VITALS: PULSE 83
[2020-11-10 06:23] LABS: Glucose,Whole Blood 107 mg/dL (75-99)
[2020-11-10] MEDS: INSULIN ASPART (NovoLOG) 100 UNIT/ML VIAL SQ SCH ×2 (06:24→12:22)
[2020-11-10] MEDS: SODIUM BICARBONATE TAB 650 MG TAB PO SCH (07:53)
[2020-11-10] MEDS: CITALOPRAM HYDROBROMIDE 20 MG TAB PO SCH (07:53)
[2020-11-10] MEDS: PANTOPRAZOLE 40 MG/10 ML VIAL IVP SCH (07:53)
[2020-11-10] MEDS: carvediloL 12.5 MG TAB PO SCH (07:53)
[2020-11-10 08:31] VITALS: BP 115/57; TEMP 97.3
--- NOTE | 2020-11-10 09:33 | P.DS ---
Providers Date of admission: 11/06/20 17:12 Expected date of discharge: 11/10/20 Attending physician: Dian Silverman MD Consults: 11/06/20 17:04 Consult Physician Routine Consulting Provider: Paul Cid Consult Reason/Comments: zandra, hyperkalemia Do you want consulting provider notified?: Yes 11/06/20 17:06 Consult Physician Routine Consulting Provider: Boston Guillen Consult Reason/Comments: GI bleed Do you want consulting provider notified?: Yes Primary care physician: Anjali Booker MD Hospital Course: 80-year-old male with hx of CAD s/p CABG, DM s/p left AKA and right metatarsal amputation, a-fib on AC presenting to the emergency Department with complaints of vomiting blood. It occurred twice. Patient is also had some black tarry stools over the past day or 2. No abdominal pain. Patient does have worsening of his chronic exertional dyspnea and cough. Has chills but no fevers. Has been feeling very weak and fatigued. No energy to ambulate. In the ER exam showed tachycardia with HR in the 110s. Patient's potassium was 6.8. Patient does have peaked T wave in the septal leads but there is no old EKG for comparison. Patient's Hemoglobin was 8.1. Last Hgb from last year was 13. Creatinine is 2.98 with BUN of 149, baseline cr 1.7. Hemoccult was + in the ER. Patient was admitted to telemetry floor. Upon admission patient was transfused 1 unit packed Cells. He was started on IV PPI and in addition he was started on IV fluids for treatment of acute renal failure. Due to his hyperkalemia he received multiple doses of IV insulin with dextrose as well as IV bicarbonate. Nephrology was following him as well. Towards the end of the hospitalization his creatinine came back to his baseline at 1.4. No further episodes of bleeding were noted during the hospitalization. He was seen by GI who did upper endoscopy which showed a duodenal ulcer. Patient admitted that he has been dealing with a lot of stress due to his 's recent . He says he is trying to cope with that. His hemoglobin has been stabilized throughout the admission without any further episodes of bleeding. The case was discussed with his daughter. Patient will be sent home with home care. Patient is to follow-up with his primary care physician as well as GI specialist. Discharge diagnoses Upper GI bleeding likely due to a duodenal ulcer ZANDRA with hyperkalemia, resolved Metabolic acidosis resolved. Patient Condition at Discharge: Critical Plan - Discharge Summary Discharge Rx Participant: No New Discharge Prescriptions: New Pantoprazole Sodium [Protonix] 40 mg PO BID 30 Days #60 tablet.dr Continue Carvedilol 12.5 mg PO BID Aspirin EC [Ecotrin Low Dose] 81 mg PO DAILY Cetirizine HCl [Zyrtec] 10 mg PO DAILY Insulin Glargine,Hum.rec.anlog [Sahra Shipley] See Protocol SQ BID Apixaban [Eliquis] 5 mg PO BID Sennosides-Docusate Sodium [Senokot-S] 1 tab PO DAILY PRN PRN Reason: Constipation Docusate [Colace] 100 mg PO DAILY PRN PRN Reason: Constipation Acetaminophen [Tylenol Arthritis] 650 mg PO Q8H PRN PRN Reason: Pain Citalopram Hydrobromide [CeleXA] 20 mg PO DAILY Bumetanide 1 mg PO DAILY Benazepril [Lotensin] 2.5 mg PO DAILY Spironolactone 25 mg PO DAILY Liraglutide [Victoza 3-Wilfredo] 1.2 mg SQ DAILY Insulin Lispro [humaLOG Kwikpen] See Protocol SQ TID Tamsulosin [Flomax] 0.4 mg PO DAILY Diltiazem HCl [Diltiazem HCl 24Hr ER (XR)] 180 mg PO DAILY Atorvastatin [Lipitor] 40 mg PO HS Allopurinol [Zyloprim] 100 mg PO DAILY Discharge Medication List Aspirin EC [Ecotrin Low Dose] 81 mg PO DAILY 12/21/13 [History] Carvedilol 12.5 mg PO BID 12/21/13 [History] Cetirizine HCl [Zyrtec] 10 mg PO DAILY 01/14/14 [History] Insulin Glargine,Hum.rec.anlog [Sahra Shipley] See Protocol SQ BID 08/31/15 [History] Apixaban [Eliquis] 5 mg PO BID 04/17/16 [History] Sennosides-Docusate Sodium [Senokot-S] 1 tab PO DAILY PRN 05/03/16 [History] Acetaminophen [Tylenol Arthritis] 650 mg PO Q8H PRN 11/06/20 [History] Allopurinol [Zyloprim] 100 mg PO DAILY 11/06/20 [History] Atorvastatin [Lipitor] 40 mg PO HS 11/06/20 [History] Benazepril [Lotensin] 2.5 mg PO DAILY 11/06/20 [History] Bumetanide 1 mg PO DAILY 11/06/20 [History] Citalopram Hydrobromide [CeleXA] 20 mg PO DAILY 11/06/20 [History] Diltiazem HCl [Diltiazem HCl 24Hr ER (XR)] 180 mg PO DAILY 11/06/20 [History] Docusate [Colace] 100 mg PO DAILY PRN 11/06/20 [History] Insulin Lispro [humaLOG Kwikpen] See Protocol SQ TID 11/06/20 [History] Liraglutide [Victoza 3-Wilfredo] 1.2 mg SQ DAILY 11/06/20 [History] Spironolactone 25 mg PO DAILY 11/06/20 [History] Tamsulosin [Flomax] 0.4 mg PO DAILY 11/06/20 [History] Pantoprazole Sodium [Protonix] 40 mg PO BID 30 Days #60 tablet. 11/10/20 [Rx] Follow up Appointment(s)/Referral(s): Anjali Booker MD [Primary Care Provider] - 1-2 days Ruba Jackson MD [STAFF PHYSICIAN] - 1 Week [facility] Visiting Nurse, [NON-STAFF] - Activity/Diet/Wound Care/Special Instructions: Patient will require a transport chair at discharge to assist with ADLs unable to be done with a cane/walker secondary to unsteady gait, medical debility & acute kidney injury. Patient unable to self-propel and will have a caregiver at home to propel the chair
--- NOTE | 2020-11-10 10:35 | P.PN ---
Subjective Patient is seen in follow-up for acute kidney injury on chronic kidney disease. Renal function back to baseline. Potassium level is normal as of yesterday. Labs from today pending. No edema. No chest pain or shortness of breath. Nonoliguric. Vital signs are stable. General: The patient appeared well nourished and normally developed. HEENT: Head exam is unremarkable. Neck is without jugular venous distension. LUNGS: Breath sounds decreased. HEART: Rate and Rhythm are regular. ABDOMEN: Soft, no distention noted. EXTREMITITES: AKA noted. No edema. Objective - Vital Signs Vital signs: Vital Signs Temp 97.3 F L 11/10/20 08:00 Pulse 83 11/10/20 08:00 Resp 18 11/10/20 08:00 BP 115/57 11/10/20 08:00 Pulse Ox 100 11/10/20 08:00 Intake & Output 11/09/20 11/10/20 11/10/20 18:59 06:59 18:59 Intake Total 618 250 125 Output Total 750 500 Balance -132 -250 125 Weight 118 kg Intake: IV 10 Invasive Line 1 10 Oral 618 240 125 Output: Urine 750 500 Other: Voiding Method Diaper Urinal Urinal Diaper Diaper # Voids 2 1 - Labs CBC & Chem 7: 11/09/20 07:15 11/09/20 07:15 Labs: Abnormal Lab Results - Last 24 Hours (Table) 11/09/20 11/09/20 11/09/20 Range/Units 12:03 16:55 19:44 POC Glucose (mg/dL) 140 H 206 H 254 H (75-99) mg/dL 11/10/20 Range/Units 06:19 POC Glucose (mg/dL) 107 H (75-99) mg/dL Assessment and Plan Plan: Assessment: 1. Acute kidney injury mostly prerenal from intravascular volume depletion improved with IV hydration. Creatinine 1.44 as of yesterday resolved.. 2. Chronic kidney disease stage IIIB with baseline creatinine 1.5-1.8. 3. Hyperkalemia secondary to acute kidney injury, metabolic acidosis, lisino pril and spironolactone. 4. GI bleed. Status post EGD which revealed a 5 mm duodenal ulcer and mild gastritis. 5. Metabolic acidosis secondary to acute kidney injury, IV fluids and diarrhea. Better. Maintained on oral bicarb. Plan: Off IV fluids. Encourage oral intake. Avoid nephrotoxins. Continue to monitor renal function and urine output. Continue to hold SOLOMON inhibitor and Aldactone. Follow-up outpatient in 7-10 days.
[2020-11-10 10:54] LABS: Basophils % (A) 0 %; Eosinophils # (A) 0.6 k/uL (0-0.7); Eosinophils % (A) 7 %; HCT 23.6 % (39.0-53.0); HGB 8.2 gm/dL (13.0-17.5); Lymphocytes # (A) 1.2 k/uL (1.0-4.8); Lymphocytes % (A) 13 %; MCH 33.1 pg (25.0-35.0); MCHC 34.9 g/dL (31.0-37.0); Mean Platelet Volume 7.8; Monocytes # (A) 0.5 k/uL (0-1.0); Monocytes % (A) 6 %; Neutrophils # (A) 6.7 k/uL (1.3-7.7); Neutrophils % (A) 73 %; Platelet Count 152 k/uL (150-450); RBC 2.48 m/uL (4.30-5.90); RDW 14.7 % (11.5-15.5); WBC 9.1 k/uL (3.8-10.6)
[2020-11-10] MEDS: MAGNESIUM SULFATE-D5W PMX 1 GM in DEXTROSE/WATER 1 100ML.BAG IVPB SCH ×2 (12:22→13:32)
--- NOTE | 2020-11-10 16:21 | PN ---
PROGRESS NOTE DATE OF DICTATION: November 10, 2020 Patient is a 80-year-old pleasant white male admitted to the hospital with acute GI bleed. 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 Patient doing well. No further bleeding. He reports no abdominal pain. No nausea, no vomiting. Eliquis is currently on hold. PHYSICAL EXAMINATION: Appears comfortable, no apparent distress. Vital signs stable. Blood pressure 115/57, pulse rate 87, temperature 97.3. HEENT examination: Unremarkable. Conjunctivae pink. Sclerae anicteric. Oral cavity no lesions. NECK no JVD. No lymph node enlargement. CHEST was clear to auscultation. HEART: Regular rate and rhythm. ABDOMEN: Soft. Bowel sounds are positive. No organomegaly. EXTREMITIES: No pedal edema. SKIN: No rashes. NEUROLOGIC: Alert and oriented x3. No focal deficits. LABS: WBC 9.1, hemoglobin 8.2, platelets normal. Rest of the labs are within normal limits. IMPRESSION: 1. 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 Patient doing well. No further episodes of bleeding. Hemoglobin stable at 8.2 g/dL. Presently on Protonix 40 mg daily. 2. Atrial fibrillation on Eliquis, currently on hold. RECOMMENDATIONS: 1. Continue Protonix 40 mg twice daily. 2. Hold Eliquis for another 2 days. 3. Patient can be discharged home today with outpatient followup in 3-4 weeks. Thank you for this consultation. MMODL / IJN: [id number] /
== END 2020-11-10 15:00 | disposition home or self-care (01) | DRG 378 ==
LOC: EC 14:15 → 3SCARD 17:12
PROVIDERS: ADMIT Internal Medicine; ATTEND Internal Medicine
PROC: 30233N1 Transfusion of Nonautologous Red Blood Cells into Peripheral Vein, Percutaneous Approach (ICD-10-PCS; 2020-11-06)
PROC: 0W3P8ZZ Control Bleeding in Gastrointestinal Tract, Via Natural or Artificial Opening Endoscopic (ICD-10-PCS; principal; 2020-11-08 12:30)
PROC: 0DB78ZX Excision of Stomach, Pylorus, Via Natural or Artificial Opening Endoscopic, Diagnostic (ICD-10-PCS; 2020-11-08 12:30)
DX: K26.4 Chronic or unspecified duodenal ulcer with hemorrhage (principal); N17.9 Acute kidney failure, unspecified; E87.2 Acidosis; I48.20 Chronic atrial fibrillation, unspecified; D62 Acute posthemorrhagic anemia; Z79.01 Long term (current) use of anticoagulants; Z95.1 Presence of aortocoronary bypass graft; Z79.82 Long term (current) use of aspirin; E87.5 Hyperkalemia; Z20.822 Contact with and (suspected) exposure to COVID-19; Z86.718 Personal history of other venous thrombosis and embolism; K29.70 Gastritis, unspecified, without bleeding; N18.32 Chronic kidney disease, stage 3b; E86.1 Hypovolemia; E78.5 Hyperlipidemia, unspecified; I25.10 Atherosclerotic heart disease of native coronary artery without angina pectoris; Z95.2 Presence of prosthetic heart valve; E11.22 Type 2 diabetes mellitus with diabetic chronic kidney disease; I25.2 Old myocardial infarction; Z79.4 Long term (current) use of insulin; R19.7 Diarrhea, unspecified; E11.319 Type 2 diabetes mellitus with unspecified diabetic retinopathy without macular edema; F41.9 Anxiety disorder, unspecified; H91.90 Unspecified hearing loss, unspecified ear; I12.9 Hypertensive chronic kidney disease with stage 1 through stage 4 chronic kidney disease, or unspecified chronic kidney disease; R32 Unspecified urinary incontinence; Z83.3 Family history of diabetes mellitus; Z85.820 Personal history of malignant melanoma of skin; Z87.442 Personal history of urinary calculi; Z89.612 Acquired absence of left leg above knee; Z95.5 Presence of coronary angioplasty implant and graft
CPT/HCPCS: 36415; 43239; 43270; 71045; 80048; 80053; 81001; 82272; 82728; 82746; 83540; 83550; 83735; 84100; 84132; 84484; 85025; 85610; 85730; 86850; 86900; 86901; 86920; 87635; 88305; 93005; 94644; 96361; 96374; 96375; 99285